=== PATIENT | female | born 1980 | race Asian ===

== ENCOUNTER 2017-06-09 17:38 | Inpatient (IN) ==
[2017-06-09] MEDS ORDERED: SODIUM CHLORIDE 0.9% 500 ML IV STA (17:58)
[2017-06-09] MEDS ORDERED: ONDANSETRON 4 MG/2 ML VIAL IV STA ×2 (17:58→18:40)
[2017-06-09] MEDS ORDERED: ALBUTEROL/IPRATROPIUM 3 ML NEB RESP TX STA (17:58)
[2017-06-09] MEDS ORDERED: ASPIRIN 325 MG TABLET PO STA (17:58)
[2017-06-09] MEDS ORDERED: ONDANSETRON 4 MG/2 ML VIAL ONE ×2 (18:03→18:41)
[2017-06-09] MEDS ORDERED: METOCLOPRAMIDE 10 MG/2 ML VIAL ONE (18:24)
[2017-06-09] MEDS ORDERED: ASPIRIN 325 MG TABLET ONE (18:24)
[2017-06-09 18:25] LABS: ABG HCO3 14.7 MMOL/L (20-26); ABG Oxygen Saturation 98.2 % (95-100); ABG PH 7.268 (7.35-7.45); ABG TCO2 11.1 MMOL/L (23-27)
[2017-06-09] MEDS ORDERED: METOCLOPRAMIDE 10 MG/2 ML VIAL IV STA (18:25)
[2017-06-09 18:33] LABS: Basophils # 0.1 10*3/uL (0.0-0.2); Basophils % 0.4 % (0.0-0.8); Eosinophils # 0.1 10*3/uL (0.0-0.87); Eosinophils % 0.7 % (0.00-10.9); Hematocrit 49.8 VOL% (35.7-47.0); Immature Granulocytes % 0.6 %; Lymphocytes # 3.6 10*3/uL (1.4-4.0); Lymphocytes % 20.7 % (21.3-54.2); Mean Corpuscular HGB Conc 32.1 GM/DL (32-36); Mean Corpuscular Hemoglobin 27 PG (27-34); Mean Corpuscular Volume 83.4 FL (87-102); Mean Platelet Volume 9.3 FL (9.6-12.0); Monocytes # 0.4 10*3/uL (0.11-0.8); Monocytes % 2.6 % (1.7-12.7); Neutrophils # 12.9 10*3/uL (1.4-7.4); Platelet Count 729 T/CUMM (130-400); Red Blood Count 5.97 MC/CUMM (3.8-5.5); Red Cell Distribution Width 21.9 % (9.3-17.3); White Blood Count 17.1 T/CUMM (4-12)
[2017-06-09 18:56] LABS: INR 1.1; PT Patient Result 12.1 SECS
[2017-06-09 19:03] LABS: Alanine Aminotransferase 48 U/L (13-56); Albumin 2.5 G/DL (3.4-5.0); Alkaline Phosphatase 158 U/L (45-117); Aspartate Amino Transferase 162 U/L (0-37); Bilirubin,Total < 0.39 MG/DL (0.2-1.0); Blood Urea Nitrogen 5 MG/DL (7-18); Calcium 7.5 MG/DL (8.5-10.1); Glucose 174 MG/DL (74-106); Magnesium 1.8 MG/DL (1.8-2.4); Osmolality,Calculated 281.3 MOS/KG (273-304); Potassium 4.1 MMOL/L (3.5-5.1); Sodium 141 MMOL/L (136-145); Total Protein 5.9 G/DL (6.4-8.3); Troponin I Only 0.025 NG/ML (0.00-0.045)
[2017-06-09 19:04] LABS: D-Dimer 7.2 MG/L FEU
[2017-06-09 19:08] LABS: Apearance,Urine CLEAR (Clear); Bilirubin,Urine Negative (Negative); Blood, Urine NEGATIVE (Negative); Glucose,Urine (UA) Negative (Negative); Ketones,Urine Negative (Negative); Nitrite,Urine Negative (Negative); Protein,Urine Negative; RBC,Urine 1 /HPF (0-4); Squamous Epithelial Cell,Urine Occasional /HPF (0-10); Urine Color Yellow (Yellow); Urine Specific Gravity 1.005 (1.001-1.035); Urine Urobilinogen 0.2 EU/DL (0.2-1.0); WBC,Urine 3 /HPF (0-6)
[2017-06-09] MEDS ORDERED: SODIUM BICARBONATE 50 MEQ/50 ML VIAL IV STA (19:24)
--- NOTE | 2017-06-09 19:24 | XRay Report ---
XR chest 1V portable Indication: Shortness of breath. Comparison: None. Technique: Portable AP chest was performed. Findings: Heart size is normal. Pulmonary vasculature appears within normal limits. No significant abnormality of the mediastinal contours demonstrated. Lungs are clear. Bones and soft tissues demonstrate no significant abnormalities. Impression: 1. No evidence of acute pathology. 06/09/2017 7:21 PM PROCEDURE INTERPRETED AT [facility] DEPARTMENT OF RADIOLOGY Final Report Signed by: Dr. Jonathan Kingsley
--- NOTE | 2017-06-09 19:40 | CT Report ---
CT head/brain wo con Indication: Syncope. Comparison: None. Technique: CT of the brain was performed without administration of intravenous contrast. The CT examination was performed using one or more of the following dose reduction techniques: Automatic exposure control, adjustment of the mA and kV according to patient size, use of acute or iterative reconstruction techniques. Findings: There is no evidence of acute intracranial hemorrhage, mass, or infarction. Ventricles appear within normal limits. The basal cisterns are patent. No significant abnormality is demonstrated to involve the posterior fossa or cerebellum. Orbits and globes demonstrate no evidence of significant pathology. The paranasal sinuses are clear. No significant abnormality is demonstrated to involve the mastoid air cells. The calvarium and overlying soft tissues demonstrate no evidence of acute pathology. Impression: 1. No CT evidence of acute intracranial pathology. 06/09/2017 7:36 PM PROCEDURE INTERPRETED AT [facility] DEPARTMENT OF RADIOLOGY Final Report Signed by: Dr. Jonathan Kingsley
[2017-06-09] MEDS ORDERED: PROMETHAZINE 25 MG/1 ML VIAL ONE (19:53)
[2017-06-09] MEDS ORDERED: LORazepam 2 MG/1 ML VIAL ONE (19:54)
[2017-06-09] MEDS ORDERED: LORazepam 2 MG/1 ML VIAL IV STA (19:55)
[2017-06-09] MEDS ORDERED: SODIUM BICARBONATE 50 MEQ/50 ML SYRINGE IV ONE (19:58)
--- NOTE | 2017-06-09 20:11 | Emergency Department Note ---
Daphney Claire Rolonda, am scribing for, and in the presence of, Floyd Ryder MD 18:10. Aleksey Claire Charles R, MD, personally performed the services described in this documentation, ascribed by Yovany Shelley in my presence, and it is both accurate and complete . Arrival - Arrival Chief Complaint: Allergic Reaction Stated Complaint: REACTION TO IRON INFUSION Mode of Arrival: Stretcher Limitations: No Limitations Source: Patient, Old Records Reviewed, RN Notes Reviewed Time Seen by Provider: 06/09/17 17:57 - History of Present Illness HPI Narrative: Pt is a 36 y/o female who presents to the ED for further evaluation of infusion reaction with an onset of earlier today. Pt has a PMHx of pseudoseizure and anemia. Pt states that she was receiving an Iron IV infusion at Dr. Balderas' today when she began to feel light headed. She states that she developed a pain that went from her back to the front of her chest "like a band". Pt states that the back pain is like a "back spasm". She states that it is "hard to breathe" and nothing relieves the pain. Pt states that she has had similar reactions while having a transfusion before but not this severe. Pt confirms SOB, vomiting, and blurred vision but denies back pain. Pt states that her BP usually runs 90/60 but at time of triage, pt's BP was 89/48. No other complaint/pain in ED. Onset (ago): hour(s) Consistency: constant Severity: moderate Severity scale (1-10): 5 Allergies/Adverse Reactions: Allergies Allergy/AdvReac Type Severity Reaction Status Date / Time codeine Allergy ITCHING Verified 06/09/17 19:11 Iodinated Contrast Media - Allergy ITCHING Verified 06/09/17 19:11 Oral and [Iodinated Contrast Media - IV Dye] sulfamethoxazole Allergy ANAPHYLAXIS Verified 06/09/17 19:11 [From Bactrim] trimethoprim [From Bactrim] Allergy ANAPHYLAXIS Verified 06/09/17 19:11 Home Medications: Home Medications Medication Instructions Recorded Confirmed Type Metoprolol Succinate 50 mg PO QAM 06/09/17 06/09/17 History Review of System - Review of System 12 point system: reviewed and no additional remarkable complaints except as stated - Review of System Constitutional: Absent: chills, fever Eyes: Present: vision change. Absent: discharge Head/Ears/Nose/Throat: Absent: earache Respiratory: Present: respiratory distress. Absent: cough Cardiovascular: Absent: chest pain, palpitations Gastrointestinal: Present: vomiting. Absent: abdominal pain, diarrhea Genitourinary female: Absent: dysuria Musculoskeletal: Present: back pain. Absent: arm pain Skin: Absent: rash Neurological: Present: vertigo. Absent: headache Psychiatric: Absent: anxiety Endocrine: Absent: cold intolerance Hematological/Lymphatic: Absent: easy bleeding Allergic/Immunologic: Absent: facial swelling Medical,Surgical,& Family Hx - Medical History Neurology: History of: Migraine No history of: Seizures (PSEUDO) HEENT: History of: Ear Problem (LOSS OF HEARING) Renal: No history of: Renal Problems Genitourinary: No history of: Bladder Problem, Kidney Stones Gastrointestinal: History of: GERD Musculoskeletal: No history of: Back/Neck Problems Hematology: History of: Anemia (IN THE PAST, BLOOD TRANSFUSIONS X 3) No history of: Blood Transfusion Reaction - Surgical History Cardiac Surgeries: Patient Denies: Cardiac Catheterization HEENT Surgeries: Patient denies: Eye Surgery, Tonsilectomy & Adenoidectomy Abdominal Surgeries: Surgical HX of: Cholecystectomy, Gastric Bypass Surgery Patient denies: Appendectomy, Colonoscopy, EGD, Hernia Repair Reproductive Surgeries: Surgical HX of;: Section, Tubal Ligation Patient denies;: Hysterectomy Orthopedic Surgeries: Patient denies;: Orthopedic Surgery - Social History Smoking Status: Never smoker Exam Vital Signs: Vital Signs Temperature 97.6 F 06/09/17 17:38 Pulse Rate 108 H 06/09/17 19:30 Respiratory Rate 18 06/09/17 19:30 Blood Pressure 105/75 06/09/17 19:30 O2 Sat by Pulse Oximetry 98 06/09/17 19:30 - General General appearance: alert, in no apparent distress, other (weak) - Head Head exam: Present: atraumatic, normocephalic - Eye Eye exam: Present: PERRL, EOMI - ENT ENT exam: Present: mucous membranes moist. Absent: mucous membranes dry - Neck Neck exam: Present: full ROM. Absent: tenderness - Chest Chest inspection: Present: symmetric chest wall rise. Absent: tenderness - Respiratory Respiratory exam: Present: normal lung sounds bilaterally. Absent: wheezes - Cardiovascular Cardiovascular exam: Present: normal rhythm, tachycardia - Abdominal Exam Abdominal exam: Present: soft, tenderness (epigastric), diminished bowel sounds - Extremities Exam Extremities exam: Present: full ROM. Absent: tenderness - Back Exam Back exam: Present: full ROM. Absent: tenderness - Neurological Exam Neurological exam: Present: alert, oriented X3, CN II-XII intact - Psychiatric Psychiatric exam: Present: normal affect, normal mood - Skin Skin exam: Present: warm, dry, intact, pallor. Absent: normal color, rash Course - Consultations Consultation #1: Hospitalist will admit patient Time: 20:46 Results - Labs CBC & BMP: 06/09/17 18:15 06/09/17 18:15 Lab Results: I have reviewed the patients labs Labs: Laboratory Tests 06/09/17 06/09/17 18:15 18:18 WBC 17.1 H RBC 5.97 H Hgb 16.0 Hct 49.8 H MCV 83.4 L RDW 21.9 H Plt Count 729 H MPV 9.3 L Neut % (Auto) 75.0 H Lymph % (Auto) 20.7 L Neut # (Auto) 12.9 H ABG pH 7.268 L ABG pCO2 28.0 L ABG pO2 161.0 H ABG HCO3 14.7 L ABG Total CO2 11.1 L ABG O2 Saturation 98.2 ABG Base Excess -13.0 L Laboratory Tests 06/09/17 06/09/17 06/09/17 18:15 18:15 18:15 INR 1.1 PT Patient/Control Mix 12.1 D-Dimer, Quantitative 7.2 Sodium 141 Potassium 4.1 Chloride 108 H Carbon Dioxide 18 L Anion Gap 19.1 H BUN 5 L GFR Calculation 0 Glucose 174 H Calcium 7.5 L AST 162 H Alkaline Phosphatase 158 H Total Protein 5.9 L Albumin 2.5 L Albumin/Globulin Ratio 0.7 L Prolactin 25.9 Urine pH Ur Specific [place] Urine Protein Urine Glucose (UA) Urine Ketones Urine Blood Urine Nitrate Urine Bilirubin Urine Urobilinogen Urine Leukocytes Urine RBC Urine WBC Ur Squamous Epith Cells Ur Culture Indicated? 06/09/17 18:15 INR PT Patient/Control Mix D-Dimer, Quantitative Sodium Potassium Chloride Carbon Dioxide Anion Gap BUN GFR Calculation Glucose Calcium AST Alkaline Phosphatase Total Protein Albumin Albumin/Globulin Ratio Prolactin Urine pH 6.0 Ur Specific [place] 1.005 Urine Protein Negative Urine Glucose (UA) Negative Urine Ketones Negative Urine Blood Negative Urine Nitrate Negative Urine Bilirubin Negative Urine Urobilinogen 0.2 Urine Leukocytes Negative Urine RBC 1 Urine WBC 3 Ur Squamous Epith Cells Occasional Ur Culture Indicated? Not indicated Laboratory Tests 06/09/17 18:15 B-Natriuretic Peptide < 2 L - Diagnostic Findings Procedure: Chest x-ray: report reviewed by me (1. No evidence of acute pathology.), CT: report reviewed by me (Head/Brain: 1. No CT evidence of acute intracranial pathology.), X-ray: image reviewed by me, report reviewed by me ( VQ lung scan is negative for pulmonary embolus) Disposition Clinical Impression: Allergic reaction, Adverse reaction to drug, Tachycardia, Syncope and collapse , Intractable nausea and vomiting, Possibly gastroparesis, Exaggerated vagovagal nerve Case discussed with: patient Disposition: Still a Patient Condition: Critical Time of Disposition: 20:46
--- NOTE | 2017-06-09 20:43 | Nuclear Medicine Report ---
NM lung scan vent and per Indication: Syncope. Shortness of breath. Comparison: None. Technique: Ventilation scan of the lungs was performed. 40 mCi of technetium 99m labeled DTPA was administered in aerosolized form, following which planar imaging in the anterior, ICELANDIC, and ZUNIGA projections was accomplished. Following this, 5 mCi technetium 99m labeled MAA was injected intravenously and perfusion scanning of the chest was performed in the anterior, ICELANDIC, and ZUNIGA projections. Findings: Perfusion imaging is normal. This excludes pulmonary embolus. Impression: 1. Normal perfusion excludes pulmonary embolus. 06/09/2017 8:37 PM PROCEDURE INTERPRETED AT [facility] DEPARTMENT OF RADIOLOGY Final Report Signed by: Dr. Jonathan Kingsley
--- NOTE | 2017-06-09 21:56 | Hospitalist History & Physical ---
Assessment and Plan (1) Allergic reaction Status: Acute Current Visit: Yes (2) Adverse reaction to drug Status: Acute Current Visit: Yes (3) Tachycardia Status: Acute Current Visit: Yes (4) Intractable nausea and vomiting Status: Acute Assessment and plan: I want to admit this patient to the ICU for close observation. I am going to put her on a bicarb infusion. An hour recheck labs at 4 AM. Continue home meds as appropriate. Feel most likely this is a reaction to the IV iron. She has had similar episodes before but not to this extent. Current Visit: Yes History of Present Illness Chief complaint: Altered mental status and reaction at iron infusion center History of present illness: Ms. Pyle is a 36 year old female with past medical history significant for anemia and pseudoseizures was in her normal state of health till today. Patient says that while she was having an IV iron infusion she felt really anxious and felt sick in her head. She reports that she got really nauseated. She reports to me that she did not lose consciousness. And that she was aware that her heart was beating real fast. She had a pain that developed in her back radiated to her front of her chest and was bandlike. She also had what appeared to be a back spasm and that was hard to breathe. She reports that she has had mild transfusion reactions before but nothing this severe. This does not resemble her pseudoseizures that she has had in the past. Patient was brought up to our hospital for further evaluation. Patient has received a thorough workup in the emergency room. Home Medications Medication Instructions Recorded Confirmed Type Metoprolol Succinate 50 mg PO QAM 06/09/17 06/09/17 History Allergies Allergy/AdvReac Type Severity Reaction Status Date / Time codeine Allergy ITCHING Verified 06/09/17 19:11 Iodinated Contrast Media - Allergy ITCHING Verified 06/09/17 19:11 Oral and [Iodinated Contrast Media - IV Dye] sulfamethoxazole Allergy ANAPHYLAXIS Verified 06/09/17 19:11 [From Bactrim] trimethoprim [From Bactrim] Allergy ANAPHYLAXIS Verified 06/09/17 19:11 Medical,Surgical,& Family Hx - Medical History Neurology: History of: Migraine No history of: Seizures (PSEUDO) HEENT: History of: Ear Problem (LOSS OF HEARING) Renal: No history of: Renal Problems Genitourinary: No history of: Bladder Problem, Kidney Stones Gastrointestinal: History of: GERD Musculoskeletal: No history of: Back/Neck Problems Hematology: History of: Anemia (IN THE PAST, BLOOD TRANSFUSIONS X 3) No history of: Blood Transfusion Reaction - Surgical History Cardiac Surgeries: Patient Denies: Cardiac Catheterization HEENT Surgeries: Patient denies: Eye Surgery, Tonsilectomy & Adenoidectomy Abdominal Surgeries: Surgical HX of: Cholecystectomy, Gastric Bypass Surgery Patient denies: Appendectomy, Colonoscopy, EGD, Hernia Repair Reproductive Surgeries: Surgical HX of;: Section, Tubal Ligation Patient denies;: Hysterectomy Orthopedic Surgeries: Patient denies;: Orthopedic Surgery - Family History Family History: Reports;: Family Diabetes, Family Hypertension - Social History Smoking Status: Never smoker Frequency of Alcohol Use: None Type of Drug Use: None 12 point system: reviewed and no additional remarkable complaints except as stated Exam - Constitutional Vitals: Period Temp Pulse Resp BP Sys/Segura Pulse Ox Last 24 Hr 97.6 F-97.6 F 104-137 16-22 88-110/48-75 98-100 - General General appearance: alert, in no apparent distress she seems nauseated and weak - Head Head exam: Present: atraumatic, normocephalic - Eye Eye exam: Present: PERRL, EOMI - ENT ENT exam: Present: mucous membranes moist. - Neck Neck exam: Present: full ROM. - Chest Chest inspection: Present: symmetric chest wall rise. Absent: tenderness - Respiratory Respiratory exam: Present: normal lung sounds bilaterally. - Cardiovascular Cardiovascular exam: Present: normal rhythm, tachycardia - Abdominal Exam Abdominal exam: Present: soft, tenderness in her epigastrium but hypoactive bowel sounds - Extremities Exam Extremities exam: Present: full ROM. Absent: tenderness - Back Exam Back exam: Present: full ROM. Absent: tenderness - Neurological Exam Neurological exam: Present: alert, oriented X3, CN II-XII intact - Psychiatric Psychiatric exam: Present: normal affect, normal mood - Skin Skin exam: Present: warm, dry, intact, pallor. Results - Labs CBC & BMP: 06/09/17 18:15 06/09/17 18:15
[2017-06-09] MEDS ORDERED: ALBUTEROL 2.5 MG/3 ML NEB RESP TX PRN (22:06)
[2017-06-09] MEDS ORDERED: SODIUM ACETATE 50 MEQ in SODIUM CHLORIDE 0.45% 1,000 ML IV SCH (23:00)
[2017-06-09] MEDS: PANTOPRAZOLE 40 MG VIAL IV SCH (23:13)
[2017-06-10] MEDS: MECLIZINE 25 MG TABLET PO PRN (03:39)
--- NOTE | 2017-06-10 06:22 | EKG Report ---
Stationary ECG Study [facility] ER Test Date: 06/09/2017 6:31:46 PM Pat Name: JAY EVANS Department: Room: 121 Gender: F [employer] Operations [employer]ist: : 1980 Requested by: Floyd Luke Order Number: [id number] Reading MD: CEASAR ABNKS Intervals [place]ester Rate: 140 P: 95 MN: 170 QRS: 20 QRSD: 78 T: 73 QT: 312 QTc: 393 Interpretive Statements SINUS TACHYCARDIA Electronically Signed On 06-10-17 16:42:12 CDT by CEASAR BANKS [email or web address]
[2017-06-10 07:16] LABS: Basophils % 0.1 % (0.0-0.8); Hematocrit 37.3 VOL% (35.7-47.0); Immature Granulocytes % 0.5 %; Immature Granulocytes Absolute 0.08 #; Lymphocytes # 0.7 10*3/uL (1.4-4.0); Lymphocytes % 4.4 % (21.3-54.2); Mean Corpuscular HGB Conc 32.2 GM/DL (32-36); Mean Corpuscular Hemoglobin 26 PG (27-34); Mean Platelet Volume 9.5 FL (9.6-12.0); Monocytes # 0.3 10*3/uL (0.11-0.8); Monocytes % 2.1 % (1.7-12.7); Neutrophils # 15.2 10*3/uL (1.4-7.4); Neutrophils % 92.9 % (38.7-73.9); Red Cell Distribution Width 20.6 % (9.3-17.3); White Blood Count 16.3 T/CUMM (4-12)
[2017-06-10 07:17] LABS: Platelet Count 471 T/CUMM (130-400); Red Blood Count 4.55 MC/CUMM (3.8-5.5)
[2017-06-10 07:32] LABS: Band Neutrophils 2 % (0-10); Hypochromasia 1+; Lymphocytes 5 % (20-55); Segmented Neutrophils 92 % (50-85); Total Cells Counted 100
[2017-06-10 07:33] LABS: Microcytosis 1+; Platelet Estimate Increased
[2017-06-10 07:39] LABS: Albumin 2.6 G/DL (3.4-5.0); Bilirubin,Total 1.4 MG/DL (0.2-1.0); Calcium 8.3 MG/DL (8.5-10.1); Osmolality,Calculated 275.5 MOS/KG (273-304); Potassium 4.8 MMOL/L (3.5-5.1); Total Protein 5.6 G/DL (6.4-8.3)
--- NOTE | 2017-06-10 08:40 | Oncology Progress Note ---
Oncology Subjective PN Interval history: This patient was receiving Venofer(iron sucrose) 400 mg over 90 minutes yesterday at the cancer clinic. Near the end of her infusion she developed pallor and hypotension. She was bolused fluids through 2 upper extremity peripheral IVs. The patient responded well initially. The infusion was stopped. She did receive Solu-Medrol 125 mg IV at that time. She was under observation only at that time and had a second episode of decreased responsiveness, profound hypotension and pallor. At that time EMS was notified and 1 mg epinephrine was given IV. Her blood pressure again improved and her heart rate was noted to be around 85-90. She was transferred to the ER in stable condition. Negative CT head and VQ lung scan are noted. Labs today show resolution of her anion gap. I have interviewed and examined her and she is pleasant and cooperative. She does have a resting tachycardia which was noted several weeks ago and addressed by her father who is a process plant operator in [place]. He started her on metoprolol. She also underwent an echocardiogram for a history of mitral valve dysfunction. She attempted an exercise stress test but was not able to tolerate this per her report this morning. Nurses report that she has stabilized since 3 AM this morning. She did report one episode of dizziness. She has been able to urinate. She did have at least 1 or 2 further hypotensive episodes after arrival to [facility]. Her lungs are clear and I do not appreciate any cardiac murmurs. I think she should hold her beta-zoie for several days. My recommendations are to transfer out of ICU and consider for discharge later today or perhaps tomorrow. Exam - Constitutional Vitals: Period Temp Pulse Resp BP Sys/Segura Pulse Ox Last 24 Hr 97.6 F-98.8 F 96-137 16-33 82-129/48-90 98-100 Results - Labs CBC & BMP: 06/10/17 06:34 06/10/17 06:34
[2017-06-10] MEDS: ACETAMINOPHEN 325 MG TABLET PO PRN (08:53)
[2017-06-10] MEDS: METOPROLOL SUCCINATE XL 50 MG TABLET PO SCH (08:53)
--- NOTE | 2017-06-10 10:13 | Hospitalist Progress Note ---
Assessment and Plan (1) Dizziness Status: Acute Assessment and plan: Ongoing with standing but improving Will check orthostatic vitals, continue to monitor on monitoring and evaluation advisor Current Visit: Yes (2) Hypotension Status: Acute Assessment and plan: Blood pressure 90s/60s this am, she reports that this is her baseline Current Visit: Yes (3) Leukocytosis Status: Acute Assessment and plan: Slightly down this morning No overt signs of infection, UA and CXR without acute process Afebrile Possibly reactive Blood cultures pending Current Visit: Yes (4) Metabolic acidosis Status: Acute Assessment and plan: Bicarb improved with IV bicarb, will discontinue Start NS for now Current Visit: Yes (5) Allergic reaction Status: Acute Current Visit: Yes (6) Tachycardia Status: Acute Assessment and plan: Per reports has a history of this for which she takes metoprolol Monitor on monitoring and evaluation advisor, NS Current Visit: Yes Hospitalist: Subjective Interval history: No acute events overnight. Patient reports that she feels better. Nausea is resolved. Still experiences some dizziness with standing. Will transfer to the floor today. Exam - Constitutional Vitals: Period Temp Pulse Resp BP Sys/Segura Pulse Ox Last 24 Hr 97.6 F-98.8 F 96-137 16-33 82-129/48-90 98-100 General appearance: normal weight - Head Head exam: Present: normocephalic, atraumatic - Eye Eye exam: Present: EOMI Pupils: Present: PRERNA - ENT ENT exam: Present: normal exam - Neck Neck exam: Present: normal inspection - Respiratory Respiratory exam: Present: clear to auscultation bilaterally. Absent: rhonchi, wheezes - Cardiovascular Cardiovascular exam: Present: regular rate and rhythm - GI/Abdominal GI/Abdominal exam: Present: normal bowel sounds, soft. Absent: tenderness, rebound - Extremities Exam Extremities exam: Present: normal inspection - Back Exam Back exam: Present: normal inspection - Neurological Exam Neurological exam: Present: alert, oriented X3 - Psychiatric Psychiatric exam: Present: normal affect, normal mood - Skin Skin exam: Present: warm, intact Results - Labs CBC & BMP: 06/10/17 06:34 06/10/17 06:34
[2017-06-10] MEDS: SODIUM CHLORIDE 0.9% 1,000 ML IV SCH ×2 (10:42→21:54)
[2017-06-10] MEDS: ONDANSETRON 4 MG/2 ML VIAL IV PRN ×2 (12:03→15:49)
[2017-06-10] MEDS ORDERED: SUMAtriptan 6 MG/0.5 ML VIAL SUBCUT ONE (15:53)
--- NOTE | 2017-06-10 15:54 | Neurology Consult Note ---
History of Present Illness History of present illness: 36 years old right-handed lady who was receiving Venofer(iron sucrose) 400 mg over 90 minutes yesterday at the cancer clinic. Near the end of her infusion she developed pallor and hypotension. She was bolused fluids through 2 upper extremity peripheral IVs. The patient responded well initially. The infusion was stopped. She did receive Solu-Medrol 125 mg IV at that time also. She was under observation only at that time and had a second episode of decreased responsiveness, profound hypotension and pallor. At that time EMS was notified and 1 mg epinephrine was given IV. Her blood pressure again improved and her heart rate was noted to be around 85-90. She was transferred to the ER in stable condition. CT of the head revealed no acute abnormalities. Patient is reporting that she has some vision difficulties at this time. She is having some difficulty in the left visual field. She has seen Dr. Cruz at [facility] before and diagnosed with pseudoseizure as well as chronic migraine headaches. She takes Excedrin Migraine at times at home. She has had MRI of the brain and long-term video EEG monitoring in [place] as well. She also has history of mitral valve dysfunction by echo. Home Medications Medication Instructions Recorded Confirmed Type Metoprolol Succinate 50 mg PO QAM 06/09/17 06/09/17 History Allergies Allergy/AdvReac Type Severity Reaction Status Date / Time codeine Allergy ITCHING Verified 06/09/17 19:11 Iodinated Contrast Media - Allergy ITCHING Verified 06/09/17 19:11 Oral and [Iodinated Contrast Media - IV Dye] sulfamethoxazole Allergy ANAPHYLAXIS Verified 06/09/17 19:11 [From Bactrim] trimethoprim [From Bactrim] Allergy ANAPHYLAXIS Verified 06/09/17 19:11 12 point system: reviewed and no additional remarkable complaints except as stated Medical,Surgical,& Family Hx - Medical History Cardio: Comment Only: Valvular Heart Disease (mitral valve prolapse) Neurology: History of: Migraine No history of: Seizures (PSEUDO) HEENT: History of: Ear Problem (LOSS OF HEARING in right ear), Eye Problem ( wears glasses) Renal: No history of: Renal Problems Genitourinary: No history of: Bladder Problem, Kidney Stones Gastrointestinal: History of: GERD Musculoskeletal: No history of: Back/Neck Problems Hematology: History of: Anemia (IN THE PAST, BLOOD TRANSFUSIONS X 3) No history of: Blood Transfusion Reaction - Surgical History Cardiac Surgeries: Patient Denies: Cardiac Catheterization HEENT Surgeries: Patient denies: Eye Surgery, Tonsilectomy & Adenoidectomy Abdominal Surgeries: Surgical HX of: Cholecystectomy, Gastric Bypass Surgery ( 2008) Patient denies: Appendectomy, Colonoscopy, EGD, Hernia Repair Reproductive Surgeries: Surgical HX of;: Section, Tubal Ligation Patient denies;: Hysterectomy Orthopedic Surgeries: Patient denies;: Orthopedic Surgery - Family History Family History: Reports;: Family Diabetes (father), Family Hypertension (father) - Social History Smoking Status: Never smoker Frequency of Alcohol Use: None Type of Drug Use: None Exam - Constitutional Vitals: Period Temp Pulse Resp BP Sys/Segura Pulse Ox Last 24 Hr 97.6 F-98.8 F 85-137 16-33 82-129/48-90 98-100 Exam: GENERAL: Patient is in no acute distress. NECK: Neck is supple. There is no JVD. No carotid bruits present. No thyroid masses. CVS: First and second heart sounds are normal. There is no S3 present. Regular rate and rhythm. RESPIRATORY: Lungs are clear to auscultation without any rales or rhonchi. ABDOMEN: Soft and non-tender. Bowel sounds are present. There is no hepatosplenomegaly. EXT: There is no palpable edema. Peripheral pulses are present. Skin: No rashes Central Nervous system: General: Alert, awake and Oriented x 3 Speech: Fluent Comprehension: Intact and normal Facial expressions: Normal Cranial Nerves: CN1/Olfactory: Normal CN II/ Optic: Normal, Visual [place] equal CN III, and : PRERNA & EOMI CN V: Normal & intact CN VII: face is symmetric CNVIII: Normal CN XI/X/XI/XII: Intact and Normal Motor: Bulk and Tone is normal. Strength in the right 5/5 Strength in the left 5/5 Sensory: Grossly intact for all the modalities of PP, LT and temp sense Reflexes: 1+ and symmetrical Cerebellar function: Normal finger to nose and heel to jeffries testing. Toes: Equivocal Gait: Normal heel to heel and toe to toe and tandem walk. Results - Labs CBC & BMP: 06/10/17 06:34 06/10/17 06:34 Assessment and Plan (1) Visual disturbance Status: Acute Assessment and plan: This could very well be secondary to migraine. Plan is to do MRI of the brain with and without contrast Current Visit: Yes (2) Syncope and collapse Status: Acute Assessment and plan: It sounded like a vasovagal phenomena. No clear evidence of a stroke, TIAs, epilepsy or seizures. However we will go ahead and perform EEG Current Visit: Yes (3) Migraine Status: Acute Assessment and plan: Patient is reporting acute headache at this moment. Visual disturbance could be a part of it We will try Imitrex 4 mg subcu injection 1 dose now Current Visit: Yes
[2017-06-10 17:07] LABS: Free T4 (Free Thyroxine) 0.85 NG/DL (0.76-1.46); Thyroid Stimulating Hormone 1.58 uIU/ml (0.358-3.74)
[2017-06-10 17:26] LABS: Folate 2.5 NG/ML (5.4-24.0)
--- NOTE | 2017-06-10 17:36 | Magnetic Resonance Report ---
MR head/brain wo con Indication: Visual disturbances. Syncope. Comparison: CT head 06/09/2017. Technique: Using 1.5 Lena magnet, multisequence multiplanar MR imaging of the brain was performed without the administration of intravenous contrast. Findings: Restricted diffusion is demonstrated involving a small punctate focus within the right thalamus, right superior aspect of the right cerebellar hemisphere, and more caudal aspect of the right and left cerebellar hemispheres. Restricted diffusion additionally is demonstrated within the cerebellar vermis. The largest of these areas lies within the posterior aspect of the right cerebral hemisphere is best demonstrated on axial image #5. These areas of restricted diffusion particularly within the cerebellum have corresponding areas of hyperintense T2 and FLAIR signal. Additional restricted diffusion involving posterior cortex and subcortical white matter the right occipital lobe is demonstrated. Axial gradient recall echo sequence demonstrates some evidence of signal loss in the region of the cerebellum. There is no true blooming in this possibly reflects calcification, artifact, versus microscopic blood products. Ventricular system demonstrates no evidence of acute pathology. White matter of the cerebral hemispheres demonstrates no significant abnormality. The basal cisterns appear patent. The arterial flow voids appear intact. The orbits and globes demonstrate no evidence of acute pathology. The paranasal sinuses and mastoid air cells demonstrate no evidence of significant mucoperiosteal thickening. The calvarium as well as the soft tissues overlying the calvarium demonstrate no evidence of acute pathology. Impression: 1. Acute to subacute infarctions bilaterally present within the cerebellar hemispheres as well as posterior cortex and subcortical white matter of the right occipital lobe suggest possible embolic phenomenon proximal to the basilar artery. Additional small punctate focus of restricted diffusion within the right thalamus is suggested. CTA neck is recommended for further evaluation of the vertebral arteries. 06/10/2017 5:19 PM PROCEDURE INTERPRETED AT [facility] DEPARTMENT OF RADIOLOGY Final Report Signed by: Dr. Jonathan Kingsley
[2017-06-10 17:39] LABS: Barbiturates Screen,Urine Negative (Negative); Benzodiazepines Screen,Urine Negative (Negative); Cannabinoid Screen,Urine Negative (Negative); Opiate Screen,Urine Negative (Negative); Phencyclidine Screen,Urine Negative (Negative)
[2017-06-10] MEDS ORDERED: ZIPRASIDONE 20 MG/1 ML VIAL IM ONE (20:25)
[2017-06-10] MEDS: PANTOPRAZOLE 40 MG VIAL IV SCH (21:52)
[2017-06-10] MEDS: HEPARIN DRIP 25,000 UNITS/500 ML PREMIX IV SCH (21:54)
[2017-06-10] MEDS: ZALEPLON 5 MG CAPSULE PO PRN (23:16)
[2017-06-11] MEDS: SODIUM CHLORIDE 0.9% 1,000 ML IV SCH ×2 (06:31→14:00)
[2017-06-11 07:02] LABS: Basophils % 0.3 % (0.0-0.8); Eosinophils % 0.2 % (0.00-10.9); Hematocrit 30.6 VOL% (35.7-47.0); Hemoglobin 9.7 GM/DL (12.0-16.0); Immature Granulocytes % 0.3 %; Immature Granulocytes Absolute 0.03 #; Lymphocytes # 3.4 10*3/uL (1.4-4.0); Mean Corpuscular HGB Conc 31.7 GM/DL (32-36); Mean Corpuscular Hemoglobin 26 PG (27-34); Mean Corpuscular Volume 82.9 FL (87-102); Mean Platelet Volume 9.9 FL (9.6-12.0); Monocytes # 0.5 10*3/uL (0.11-0.8); Monocytes % 4.9 % (1.7-12.7); Neutrophils # 5.7 10*3/uL (1.4-7.4); Neutrophils % 59.3 % (38.7-73.9); Platelet Count 341 T/CUMM (130-400); Red Blood Count 3.69 MC/CUMM (3.8-5.5); Red Cell Distribution Width 21.1 % (9.3-17.3); White Blood Count 9.7 T/CUMM (4-12)
[2017-06-11 07:33] LABS: Calcium 8.3 MG/DL (8.5-10.1); Magnesium 1.9 MG/DL (1.8-2.4); Osmolality,Calculated 281.8 MOS/KG (273-304); Potassium 3.7 MMOL/L (3.5-5.1)
[2017-06-11] MEDS ORDERED: methylPREDNISolone SOD SUC 125 MG/2 ML VIAL IV ONE (07:54)
[2017-06-11] MEDS ORDERED: diphenhydrAMINE 50 MG/1 ML VIAL IV ONE (07:54)
[2017-06-11] MEDS ORDERED: FAMOTIDINE 20 MG/2 ML VIAL IV ONE (07:55)
--- NOTE | 2017-06-11 08:32 | Oncology Progress Note ---
Oncology Subjective PN Interval history: Chart reviewed and patient examined. Persistent visual defect since early yesterday morning. Positive MRI with evidence of multiple infarcts. Plan for CTA today Now on heparin infusion. Hypercoagulable workup in progress. She is back on beta-zoie and her vitals have stabilized. She is alert and pleasant. Discussed with her that she would require long-term oral anticoagulation. Exam - Constitutional Vitals: Period Temp Pulse Resp BP Sys/Segura Pulse Ox Last 24 Hr 97.2 F-99.0 F 67-116 16-23 91-113/55-73 95-100 Results - Labs CBC & BMP: 06/11/17 05:19 06/11/17 05:19
[2017-06-11] MEDS: METOPROLOL SUCCINATE XL 50 MG TABLET PO SCH (08:49)
[2017-06-11] MEDS: ACETAMINOPHEN 325 MG TABLET PO PRN ×2 (08:49→18:14)
[2017-06-11] MEDS: MECLIZINE 25 MG TABLET PO PRN ×3 (08:58→18:14)
[2017-06-11 12:49] LABS: INR 1.1; PT Patient Result 11.3 SECS
[2017-06-11 12:56] LABS: Partial Thromboplastin Time 45.5 SECS (0-40)
--- NOTE | 2017-06-11 14:03 | Magnetic Resonance Report ---
History: Visual changes. CVA Date: 06/11/2017 Study: MRV of the head without contrast Comparison exam: MRI brain June 10, 2017. CT angiogram of the head 06/11/2017 2-D [id number] MRV of the head was performed on the 1.5 Lnea magnet. In addition to source images, 3-D images were also generated, archived, and analyzed. There is flow within the major venous sinuses without evidence of venous sinus thrombosis. The superior sagittal sinus, transverse sinuses, straight sinus, sigmoid sinuses, and other major sinuses are patent and normal when allowing for normal variation of flow patterns. The ventricles remain midline in position without evidence of hydrocephalus. There is no obvious brain mass. Impression: No evidence of venous sinus thrombosis PROCEDURE INTERPRETED AT [facility] DEPARTMENT OF RADIOLOGY Final Report Signed by: Dr. Silvia Mcmillan
--- NOTE | 2017-06-11 14:33 | Neurology Progress Note ---
Neurology - PN : Subjective Interval history: Patient seems to be doing a little better. Headaches are still bothersome. MRI of the brain report noted. Patient has bilateral acute infarcts in the posterior circulation. Able to get up and walk and has no walking difficulties however vision is a still bothersome. Hypercoagulable workup is in progress. Exam (Progress Note) - Constitutional Vitals: Period Temp Pulse Resp BP Sys/Segura Pulse Ox Last 24 Hr 97.2 F-99.0 F 65-94 16-20 97-114/57-75 95-100 Exam: GENERAL: Patient is in no acute distress. NECK: Neck is supple. There is no JVD. No carotid bruits present. No thyroid masses. CVS: First and second heart sounds are normal. There is no S3 present. Regular rate and rhythm. RESPIRATORY: Lungs are clear to auscultation without any rales or rhonchi. ABDOMEN: Soft and non-tender. Bowel sounds are present. There is no hepatosplenomegaly. EXT: There is no palpable edema. Peripheral pulses are present. Skin: No rashes Central Nervous system: General: Alert, awake and Oriented x 3 Speech: Fluent Comprehension: Intact and normal Facial expressions: Normal Cranial Nerves: CN1/Olfactory: Normal CN II/ Optic: Normal, Visual Montgomery questionable left homonymous hemianopsia CN III, and : PRERNA & EOMI CN V: Normal & intact CN VII: face is symmetric CNVIII: Normal CN XI/X/XI/XII: Intact and Normal Motor: Bulk and Tone is normal. Strength in the right 5/5 Strength in the left 5/5 Sensory: Grossly intact for all the modalities of PP, LT and temp sense Reflexes: 1+ and symmetrical Cerebellar function: Normal finger to nose and heel to jeffries testing. Toes: Equivocal Gait: Not tested at this time Results - Labs CBC & BMP: 06/11/17 05:19 06/11/17 05:19 Assessment and Plan (1) Visual disturbance Status: Acute Assessment and plan: This could very well be secondary to migraine. Plan is to do MRI of the brain with and without contrast Current Visit: Yes (2) Syncope and collapse Status: Acute Assessment and plan: It sounded like a vasovagal phenomena. No clear evidence of a stroke, TIAs, epilepsy or seizures. However we will go ahead and perform EEG Current Visit: Yes (3) Migraine Status: Acute Assessment and plan: Patient is reporting acute headache at this moment. Visual disturbance could be a part of it We will try Imitrex 4 mg subcu injection 1 dose now Current Visit: Yes (4) Acute CVA (cerebrovascular accident) Status: Acute Assessment and plan: Etiology of the stroke is not clear. This is an embolic event. MRA's are pending MRV is negative We will go ahead and order MARINO Continue IV heparin for now. Current Visit: Yes
[2017-06-11 15:08] LABS: Risk Ratio 2.16; VLDL CHOLESTEROL 27.6 MG/DL
--- NOTE | 2017-06-11 17:36 | ECHO Report ---
Gely Pyle Exam Date: 06/11/2017 07:41 Referring Physician: Technologist: kurtis FletcherS, RVT Age: 36 Ht (in): 62 Wt (lb): 158 Gender: F Exam Location: [facility] Echo Indications: Dizziness and giddiness, Hypotension, Leukocytosis, Tachycardia, Metabolic acidosis, Allergic reaction BP: 99 / 57 HR: 73 Rhythm: Sinus Technical Quality: IMPRESSIONS Left ventricular ejection fraction is estimated at 55 %. Trace mitral valve regurgitation. Trace tricuspid valve regurgitation. MEASUREMENTS (Male / Female) Normal Values 2D ECHO LV Diastolic Diameter PLAX 4.3 cm 4.2 - 5.9 / 3.9 - 5.3 cm LV Systolic Diameter PLAX 2.8 cm LV Fractional Shortening PLAX 35.0 % IVS Diastolic Thickness 0.5 cm 0.6 - 1.0 / 0.6 - 0.9 cm LVPW Diastolic Thickness 0.7 cm 0.6 - 1.0 / 0.6 - 0.9 cm RV Internal Dim ED PLAX 2.4 cm Aortic Root Diameter 2.7 cm LA Systolic Diameter LX 2.8 cm 3.0 - 4.0 / 2.7 - 3.8 cm DOPPLER TR Peak Velocity 232.0 cm/s TR Peak Gradient 21.5 mmHg FINDINGS Left Ventricle Normal left ventricular cavity size. Normal left ventricular wall thickness. Left ventricular ejection fraction is estimated at 55 %. Right Ventricle The right ventricle is normal in size and function. Right Atrium The right atrium is normal in size. Left Atrium The left atrium is normal in size. Mitral Valve Mildly thickened mitral valve. Trace mitral valve regurgitation. Aortic Valve Morphologically normal aortic valve without significant sclerosis or stenosis. There is no aortic regurgitation. Tricuspid Valve Morphologically normal tricuspid valve. Trace tricuspid valve regurgitation. Tricuspid regurgitation velocities suggest a PAP of 32 mmHg. Pulmonic Valve Morphologically normal pulmonic valve without significant stenosis. There is no pulmonic regurgitation. Pericardium Normal pericardium without effusion. Aorta Normal ascending aorta dimension. Manolo Quinones (Electronically Signed) Final Date: 11 June 2017 17:35
--- NOTE | 2017-06-11 18:01 | Hospitalist Progress Note ---
Hospitalist: Subjective Interval history: 36-year-old female with headache and embolic stroke on IV heparin. Has headache. Exam - Constitutional Vitals: Period Temp Pulse Resp BP Sys/Segura Pulse Ox Last 24 Hr 97.2 F-99.0 F 65-94 18-20 97-114/57-75 95-100 Exam: General: No Acute Distress HEENT: Normocephalic, atraumatic, Extra ocular movements intact Neck: Supple, No JVD Chest: Clear to auscultation B/L CV: S1 + S2 audible without murmur, gallop or rub Abd: soft, NT, Non-distended, BS + Ext: No edema Skin: No purpura, bruising or rash Rheumatologic: No Joint deformities Neurologic: Strength 5/5 all extremities, no gross sensory deficits Results - Labs CBC & BMP: 06/11/17 05:19 06/11/17 05:19 - Impressions Assessment and plan Acute posterior circulation embolic stroke Status: Acute Assessment and plan: Continue IV heparin MRV brain negative Current Visit: Yes Migraine headache Status: Acute Assessment and plan: Getting treatment Current Visit: Yes Hypotension Status: Acute Assessment and plan: This was likely side effect from Venofer, blood pressure stable Current Visit: Yes Anemia Status: Acute Assessment and plan: Multifactorial, including B12 and folate deficiency, she is on replacement treatment Current Visit: Yes
[2017-06-11] MEDS: FOLIC ACID 1 MG TABLET PO SCH (18:11)
[2017-06-11] MEDS: CYANOCOBALAMIN 1000 MCG/1 ML VIAL IM SCH (18:11)
[2017-06-11] MEDS: ONDANSETRON 4 MG/2 ML VIAL IV PRN (18:14)
--- NOTE | 2017-06-11 18:54 | History and Physical Update ---
Sedation H&P Update - Dictation Physical: refer to H&P completed by admitting physician - Physical Exam Mental Status: alert and oriented Heart: regular rate and rhythm Lung: clear to auscultation Abdomen: within normal limits Vitals: within normal limits - Sedation Plan for Sedation: moderate Patient Consent: Procedure disscussed with patient and patinet has consented., Risks and benefits were discussed with patient,including infection,, bleeding, injury to surrounding structures, seizure, temporary nerve, Patient understands and accepts potential risks/benefits and agrees to, proceed. ASA Class: II Airway Assessment: Class II: Soft palate, uvula, fauces visible
[2017-06-11 19:18] LABS: INR 1.1; PT Patient Result 11.2 SECS; Partial Thromboplastin Time 38.9 SECS (0-40)
--- NOTE | 2017-06-11 19:19 | CT Report ---
CT angio neck, CT angio head Indication: "Abnormal MRI" CT ANGIOGRAM CAROTID ARTERIES DLP: 1276 mGy*cm. One or more of the following dose reduction techniques was used: Automated exposure control, adjustment of the mA and/or kV according the patient size, or use of iterative reconstruction techniques. Technique: Axial thin cuts CT images were obtained from the aortic arch through the skull base during the arterial phase of contrast injection. 3-D vascular MIPs reconstructions and multiplanar reformats were evaluated. Omnipaque 350, 80 cc given. Comparison: None. Findings: Severity of stenosis based on NASCET criteria. Reference downstream ICA diameters are 3.2 mm on the right and 3.5 mm on the left. There is no atheromatous disease or stenosis of either ICA origin. Both internal carotid arteries are widely patent through the skull base. Both vertebral arteries are patent, left-sided dominant. Within the mid right vertebral artery, at the level of C4, there is a crescentic filling defect generally eccentric but extending to the center of the vertebral artery, likely a small focus of thrombus. It appears adherent to the vessel intima. No other filling defects are identified within the vertebral system. Bovine arch noted. Aortic arch is unremarkable. No cervical chain lymphadenopathy. Pulmonary apices are clear. No destructive bone lesions. Impression: 1. Small eccentric filling defect within the mid right vertebral artery consistent with an adherent clot. Recommend repeat CT angiogram after 2-4 weeks of therapeutic anticoagulation. 2. Normal CT angiogram of the carotid arteries. Bovine arch incidentally noted. CT ANGIOGRAM [place] DLP: 1276 mGy*cm. One or more of the following dose reduction techniques was used: Automated exposure control, adjustment of the mA and/or kV according the patient size, or use of iterative reconstruction techniques. Technique: Axial thin cut CT images were obtained from the skull base to the vertex during arterial phase of contrast injection. 3-D vascular MIPs reconstructions and multiplanar reformats were evaluated. Omnipaque 350, 80 cc given. Comparison: None. Findings: Both vertebral arteries terminate in the basilar artery which is of normal caliber and free of filling defect. Its contour is smooth. The basilar artery terminates in bilateral [place]. The [place] vessels are bilaterally symmetric and appear patent as far distal as visualized. The carotid termini are unremarkable without aneurysm or focal stenosis. RADHA and MCA vascular territories are bilaterally symmetric as well. No intracranial aneurysmal disease. No abrupt termination of flow. Dural venous sinuses, deep cerebral venous structures are widely patent. Both transverse and sigmoid sinuses are widely patent as well. Proximal internal jugular veins are widely patent and symmetric. Impression: 1. Negative CT angiogram of the [place]. 2. No evidence of dural vein thrombosis. PROCEDURE INTERPRETED AT [facility] DEPARTMENT OF RADIOLOGY Final Report Signed by: Ifeanyi Ayala M.D.
[2017-06-11] MEDS ORDERED: ZIPRASIDONE 20 MG/1 ML VIAL IM ONE (19:30)
[2017-06-11] MEDS ORDERED: HEPARIN 5,000 UNIT/1 ML VIAL SUBCUT ONE (20:51)
--- NOTE | 2017-06-11 20:54 | Cardiology Progress Note ---
Cardiology - PN: Subj Interval history: Cardiology note Called for MARINO. 36-year-old woman from [place] with chronic anemia had allergic reaction to iron infusion and subsequent stroke. MRI shows bilateral cerebellar hemisphere and right thalamus and right occipital lobe infarcts. Currently on IV heparin. SHe is complaining of blurred vision and trouble reading. Surface echo showed ejection fraction of 55% with mildly thickened mitral valve , trivial MR, normal RV function, no effusion. Lifetime non-smoker and nondrinker. Patient history of chronic migraine headaches. No clinical history of stroke. No history of DVT, miscarriage, or clotting disorder in her family. Status post EGD with esophageal stricture dilatation [address] Albert Worthington. She denies difficulty swallowing at this time. Chronic microcytic anemia hemoglobin 9.7 hematocrit 30.6 MCV 82 Lipid panel showed cholesterol 272 LDL 120 HDL 126 triglycerides 138 CTA carotids showed normal carotid arteries bilaterally and clot in the mid right vertebral artery. Regular rhythm no murmur or gallop. Strong pulses both arms and legs Abdomen benign No edema Plan MARINO tomorrow 7:30 AM. Procedure risk benefits discussed with patient and with her Orlin. All questions answered and she agrees to proceed as outlined. Hypercoagulable workup in progress IV heparin Exam (Progress Note) - Constitutional Vitals: Period Temp Pulse Resp BP Sys/Segura Pulse Ox Last 24 Hr 97.2 F-99.0 F 65-81 18-20 97-114/57-75 95-100 Result/EKG - Labs CBC & BMP: 06/11/17 05:19 06/11/17 05:19 Labs: Laboratory Results - last 24 hr 06/10/17 06/11/17 06/11/17 20:53 05:19 05:19 WBC 9.7 D RBC 3.69 L Hgb 9.7 L D Hct 30.6 L MCV 82.9 L MCH 26 L MCHC 31.7 L RDW 21.1 H Plt Count 341 D MPV 9.9 Neut % (Auto) 59.3 Lymph % (Auto) 35.0 [place] % (Auto) 4.9 Eos % (Auto) 0.2 Baso % (Auto) 0.3 Neut # (Auto) 5.7 Lymph # (Auto) 3.4 [place] # (Auto) 0.5 Eos # (Auto) 0.0 Baso # (Auto) 0.0 Immature Gran % 0.3 Nucleated RBC % 0.0 Immature Gran # 0.03 Nucleated RBCs # 0.00 Immature Plt Fraction 0.0 INR PT Patient/Control Mix Circ Anticoag PTT 25.9 38.9 D Sodium Potassium Chloride Carbon Dioxide Anion Gap BUN Creatinine GFR Calculation BUN/Creatinine Ratio Glucose Calculated Osmolality Calcium Magnesium Triglycerides Cholesterol LDL Cholesterol VLDL Cholesterol HDL Cholesterol Heart Disease Risk Ratio 06/11/17 06/11/17 06/11/17 05:19 12:22 13:30 WBC RBC Hgb Hct MCV MCH MCHC RDW Plt Count MPV Neut % (Auto) Lymph % (Auto) [place] % (Auto) Eos % (Auto) Baso % (Auto) Neut # (Auto) Lymph # (Auto) [place] # (Auto) Eos # (Auto) Baso # (Auto) Immature Gran % Nucleated RBC % Immature Gran # Nucleated RBCs # Immature Plt Fraction INR 1.1 PT Patient/Control Mix 11.3 Circ Anticoag PTT 45.5 H Sodium 144 Potassium 3.7 Chloride 109 H Carbon Dioxide 27 Anion Gap 11.7 BUN 3 L Creatinine 0.50 L GFR Calculation 123 BUN/Creatinine Ratio 6.00 Glucose 72 L Calculated Osmolality 281.8 Calcium 8.3 L Magnesium 1.9 Triglycerides 138 Cholesterol 272 H LDL Cholesterol 120.0 VLDL Cholesterol 27.6 HDL Cholesterol 126 H Heart Disease Risk Ratio 2.16 06/11/17 18:29 WBC RBC Hgb Hct MCV MCH MCHC RDW Plt Count MPV Neut % (Auto) Lymph % (Auto) [place] % (Auto) Eos % (Auto) Baso % (Auto) Neut # (Auto) Lymph # (Auto) [place] # (Auto) Eos # (Auto) Baso # (Auto) Immature Gran % Nucleated RBC % Immature Gran # Nucleated RBCs # Immature Plt Fraction INR 1.1 PT Patient/Control Mix 11.2 Circ Anticoag PTT 38.9 Sodium Potassium Chloride Carbon Dioxide Anion Gap BUN Creatinine GFR Calculation BUN/Creatinine Ratio Glucose Calculated Osmolality Calcium Magnesium Triglycerides Cholesterol LDL Cholesterol VLDL Cholesterol HDL Cholesterol Heart Disease Risk Ratio
[2017-06-11] MEDS: ZALEPLON 5 MG CAPSULE PO PRN (21:09)
[2017-06-11] MEDS: HEPARIN DRIP 25,000 UNITS/500 ML PREMIX IV SCH (21:15)
[2017-06-11] MEDS: PANTOPRAZOLE 40 MG VIAL IV SCH (22:59)
[2017-06-12] MEDS: SODIUM CHLORIDE 0.9% 1,000 ML IV SCH ×3 (00:30→17:18)
[2017-06-12] MEDS ORDERED: MIDAZOLAM 10 MG/2 ML VIAL ONE ×2 (07:29→08:25)
[2017-06-12] MEDS ORDERED: MEPERIDINE 25 MG/1 ML VIAL ONE ×2 (07:29→08:38)
[2017-06-12] MEDS ORDERED: MEPERIDINE 25 MG/1 ML VIAL IV ONE (08:55)
[2017-06-12] MEDS ORDERED: MIDAZOLAM 2 MG/2 ML VIAL IV ONE (08:55)
--- NOTE | 2017-06-12 10:02 | Quality Management ---
The patient's LDL is 120. Please order the appropriate medication or provide a contraindication PRIOR to discharge. To complete this task, you will need to order the medication OR provide a contraindication utilizing the Order Management screen. DO NOT ORDER OR PROVIDE CONTRAINDICATIONS WITHIN THIS QUERY. THIS IS A MEANINGFUL USE REQUIREMENT! Thank you, Lea Viramontes RN Clinical Filling [place] [address] [phone] [facility]
[2017-06-12] MEDS: ONDANSETRON 4 MG/2 ML VIAL IV PRN (10:25)
[2017-06-12] MEDS: METOPROLOL SUCCINATE XL 50 MG TABLET PO SCH (10:27)
[2017-06-12] MEDS: FOLIC ACID 1 MG TABLET PO SCH (10:27)
[2017-06-12] MEDS: CYANOCOBALAMIN 1000 MCG/1 ML VIAL IM SCH (10:27)
[2017-06-12] MEDS: ACETAMINOPHEN 325 MG TABLET PO PRN (10:53)
[2017-06-12] MEDS ORDERED: PROMETHAZINE 25 MG/1 ML VIAL IM ONE (11:08)
[2017-06-12] MEDS ORDERED: KETOROLAC 60 MG/2 ML VIAL IM ONE (11:08)
[2017-06-12] MEDS ORDERED: METOCLOPRAMIDE 10 MG/2 ML VIAL IV PRN (11:10)
[2017-06-12 11:57] LABS: Protein C Activity Plasma 113 % (70 - 150)
--- NOTE | 2017-06-12 12:41 | Hospitalist Progress Note ---
Hospitalist: Subjective Interval history: 36-year-old female admitted with acute ischemic stroke. Has a migraine headache today. Exam - Constitutional Vitals: Period Temp Pulse Resp BP Sys/Segura Pulse Ox Last 24 Hr 97.7 F-98.4 F 66-95 16-20 93-111/55-75 96-98 Exam: General: No Acute Distress HEENT: Normocephalic, atraumatic, Extra ocular movements intact Neck: Supple, No JVD Chest: Clear to auscultation B/L CV: S1 + S2 audible without murmur, gallop or rub Abd: soft, NT, Non-distended, BS + Ext: No edema Skin: No purpura, bruising or rash Rheumatologic: No Joint deformities Neurologic: Strength 5/5 all extremities, no gross sensory deficits Results - Labs CBC & BMP: 06/11/17 05:19 06/11/17 05:19 - Impressions Assessment and plan: Acute posterior circulation embolic stroke Status: Acute Assessment and plan: Continue IV heparin MRV brain negative MRI brain shows bilateral cerebellar hemisphere and right thalamus and right occipital lobe infarcts CTA head/neck showed a small clot in the mid right vertebral artery. Hypercoagulable workup in progress f/u MARINO Results Current Visit: Yes Migraine headache Status: Acute Assessment and plan: Getting treatment. We will give a trial of Reglan Current Visit: Yes Hypotension Status: Acute Assessment and plan: This was likely side effect from Venofer, blood pressure stable Current Visit: Yes Anemia Status: Acute Assessment and plan: Multifactorial, including B12 and folate deficiency, she is on replacement treatment Current Visit: Yes Hypercholesterolemia Status: Acute Assessment and plan: She is on Lipitor as total cholesterol was 272 and LDL was 120 Current Visit: Yes
[2017-06-12] MEDS: CYANOCOBALAMIN 500 MCG TABLET PO SCH (13:59)
--- NOTE | 2017-06-12 16:30 | Neurology Progress Note ---
Neurology - PN : Subjective Interval history: Patient seems to be doing about the same. Primary problem at this time is headaches. She did get MARINO this more after MARINO she has been having bitemporal and frontal headaches. It is throbbing in character. Associated with nausea. She had received Reglan dose as well as Toradol without any significant help. Exam (Progress Note) - Constitutional Vitals: Period Temp Pulse Resp BP Sys/Segura Pulse Ox Last 24 Hr 97.7 F-98.4 F 66-95 16-20 93-111/55-75 96-98 Exam: GENERAL: Patient is in no acute distress. NECK: Neck is supple. There is no JVD. No carotid bruits present. No thyroid masses. CVS: First and second heart sounds are normal. There is no S3 present. Regular rate and rhythm. RESPIRATORY: Lungs are clear to auscultation without any rales or rhonchi. ABDOMEN: Soft and non-tender. Bowel sounds are present. There is no hepatosplenomegaly. EXT: There is no palpable edema. Peripheral pulses are present. Skin: No rashes Central Nervous system: General: Alert, awake and Oriented x 3 Speech: Fluent Comprehension: Intact and normal Facial expressions: Normal Cranial Nerves: CN1/Olfactory: Normal CN II/ Optic: Normal, Visual Montgomery questionable left homonymous hemianopsia CN III, and : PRERNA & EOMI CN V: Normal & intact CN VII: face is symmetric CNVIII: Normal CN XI/X/XI/XII: Intact and Normal Motor: Bulk and Tone is normal. Strength in the right 5/5 Strength in the left 5/5 Sensory: Grossly intact for all the modalities of PP, LT and temp sense Reflexes: 1+ and symmetrical Cerebellar function: Normal finger to nose and heel to jeffries testing. Toes: Equivocal Gait: Able to get up and walk with min assist to supervision Results - Labs CBC & BMP: 06/11/17 05:19 06/11/17 05:19 Assessment and Plan (1) Visual disturbance Status: Acute Assessment and plan: This could very well be secondary to migraine. Plan is to do MRI of the brain with and without contrast Current Visit: Yes (2) Syncope and collapse Status: Acute Assessment and plan: It sounded like a vasovagal phenomena. No clear evidence of a stroke, TIAs, epilepsy or seizures. However we will go ahead and perform EEG Current Visit: Yes (3) Migraine Status: Acute Assessment and plan: Depacon 500 g IV every 8 Solu-Medrol 60 mg IV q. every 8 Demerol 75 mg IV q8 Phenergan 25 mg IM q8 We will run this medication for [address] head without contrast Current Visit: Yes (4) Acute CVA (cerebrovascular accident) Status: Acute Assessment and plan: Hypercoagulable state workup is pending Stop IV heparin Eliquis 5 mg twice daily Current Visit: Yes
--- NOTE | 2017-06-12 17:00 | CT Report ---
Noncontrast CT head June 12, 2017 Indication: Syncope Comparison: June 09, 2017 Technique: Unenhanced CT of the abdomen was performed in routine fashion. Axial images were submitted for interpretation Findings: Development of multifocal areas of hypoattenuation throughout the cerebellar hemispheres have developed in the interim with blurring of the steward-white differentiation along the posterior right occipital lobe. There is again scattered hypodensities scattered throughout the supratentorial steward matter, stable in the interim. No mass effect or midline shift. No intra or extra-axial hemorrhage. Mild sulcal prominence. Ventricular system and basilar cisterns are symmetric. Calvarium is intact. No soft tissue abnormalities. Impression: Development of multi focal infarctions involving the bilateral cerebellar hemispheres and some aspect right occipital lobe. PROCEDURE INTERPRETED AT [facility] DEPARTMENT OF RADIOLOGY Final Report Signed by: Jonathan Steward
[2017-06-12] MEDS: PROMETHAZINE 25 MG/1 ML VIAL IM SCH (17:19)
[2017-06-12] MEDS: MEPERIDINE 50 MG/1 ML VIAL IV PRN (17:19)
[2017-06-12] MEDS: methylPREDNISolone SOD SUC 40 MG/1 ML VIAL IV SCH (17:19)
[2017-06-12] MEDS: VALPROIC ACID INJ 500 MG in SODIUM CHLORIDE 0.9% 100 ML IV SCH (18:08)
--- NOTE | 2017-06-12 19:16 | ECHO Report ---
Gely Pyle Exam Date: 06/12/2017 07:17 Referring Physician: Technologist: Tatyana Perez LRCP Age: 36 Ht (in): 62 Wt (lb): 157 Gender: F Exam Location: [facility] Echo Pre-op Dx: Stroke Post-op Dx: BP: 117 / 75 HR: 82 Rhythm: Sinus Technical Quality: Good Specimens Taken Devices Implanted Medications Complications Estimated Blood Loss Proc. Components IMPRESSIONS Left ventricular ejection fraction is estimated at 65 %. Normal right ventricular size and systolic function. Normal right atrial size. Normal left atrial size. No thrombus visualized in the left atrial appendage. Normal interatrial septum. No vauno-oy-kaez shunt seen at the atrial level with contrast. Mildly thickened mitral valve. Trace mitral valve regurgitation. The aortic valve is trileaflet and has normal motion. No aortic valve regurgitation. Mild tricuspid valve regurgitation. PAP25 mmHg. Morphologically normal pulmonic valve. No pericardial effusion. No plaque seen descending Aorta. No cardio embolic source identified. MEASUREMENTS (Male / Female) Normal Values FINDINGS Left Ventricle Left ventricular ejection fraction is estimated at 65 %. Right Ventricle Normal right ventricular size and systolic function. Right Atrium Normal right atrial size. Left Atrium Normal left atrial size. LA Appendage No thrombus visualized in the left atrial appendage. IA Septum Normal interatrial septum. No [id number] shunt seen at the atrial level with contrast. Mitral Valve Mildly thickened mitral valve. Trace mitral valve regurgitation. Aortic Valve The aortic valve is trileaflet and has normal motion. No aortic valve regurgitation. Tricuspid Valve Morphologically normal tricuspid valve. Mild tricuspid valve regurgitation. PAP25 mmHg. Pulmonic Valve Morphologically normal pulmonic valve. Pericardium No pericardial effusion. Aorta No plaque seen descending Aorta Don Eder (Electronically Signed) Final Date: 12 June 2017 19:15
[2017-06-12] MEDS: ZALEPLON 5 MG CAPSULE PO PRN (21:39)
[2017-06-12] MEDS: ATORVASTATIN 40 MG TABLET PO SCH (21:39)
[2017-06-12] MEDS: PANTOPRAZOLE 40 MG VIAL IV SCH (21:41)
[2017-06-13] MEDS: MEPERIDINE 50 MG/1 ML VIAL IV PRN ×3 (01:18→18:08)
[2017-06-13] MEDS: methylPREDNISolone SOD SUC 40 MG/1 ML VIAL IV SCH ×2 (01:21→08:41)
[2017-06-13] MEDS: VALPROIC ACID INJ 500 MG in SODIUM CHLORIDE 0.9% 100 ML IV SCH ×2 (01:27→08:41)
[2017-06-13] MEDS: PROMETHAZINE 25 MG/1 ML VIAL IM SCH ×2 (01:28→08:41)
[2017-06-13 04:42] LABS: Basophils % 0.1 % (0.0-0.8); Hematocrit 30.3 VOL% (35.7-47.0); Hemoglobin 9.6 GM/DL (12.0-16.0); Immature Granulocytes % 1.1 %; Immature Granulocytes Absolute 0.09 #; Lymphocytes # 0.8 10*3/uL (1.4-4.0); Mean Corpuscular HGB Conc 31.7 GM/DL (32-36); Mean Corpuscular Hemoglobin 27 PG (27-34); Mean Corpuscular Volume 83.9 FL (87-102); Monocytes # 0.1 10*3/uL (0.11-0.8); Monocytes % 1.4 % (1.7-12.7); Neutrophils # 7.2 10*3/uL (1.4-7.4); Neutrophils % 87.4 % (38.7-73.9); Platelet Count 280 T/CUMM (130-400); Red Blood Count 3.61 MC/CUMM (3.8-5.5); Red Cell Distribution Width 21.1 % (9.3-17.3); White Blood Count 8.3 T/CUMM (4-12)
[2017-06-13 05:03] LABS: Calcium 7.8 MG/DL (8.5-10.1); Osmolality,Calculated 278.3 MOS/KG (273-304)
[2017-06-13] MEDS: SODIUM CHLORIDE 0.9% 1,000 ML IV SCH ×3 (05:50→17:46)
[2017-06-13] MEDS: CYANOCOBALAMIN 500 MCG TABLET PO SCH (08:40)
[2017-06-13] MEDS: METOPROLOL SUCCINATE XL 50 MG TABLET PO SCH (08:41)
[2017-06-13] MEDS: FOLIC ACID 1 MG TABLET PO SCH (08:41)
--- NOTE | 2017-06-13 12:04 | Cardiology Progress Note ---
Cardiology - PN: Subj Interval history: Cardiology note Still having headaches. Received Demerol Blood pressure 110/70 Pulse steady and regular No murmur or gallop Lungs clear MARINO showed no cardioembolic source Ejection fraction 65% structurally normal valves, no clot in left atrial appendage, normal descending thoracic aorta. I called her Orlin to discuss the results yesterday Plan Demerol Depakote Phenergan Exam (Progress Note) - Constitutional Vitals: Period Temp Pulse Resp BP Sys/Segura Pulse Ox Last 24 Hr 97.5 F-98.2 F 61-97 16-20 94-111/58-74 94-100 Result/EKG - Labs CBC & BMP: 06/13/17 02:26 06/13/17 02:26 Labs: Laboratory Results - last 24 hr 06/12/17 06/13/17 06/13/17 15:51 02:26 02:26 WBC 8.3 RBC 3.61 L Hgb 9.6 L Hct 30.3 L MCV 83.9 L MCH 27 MCHC 31.7 L RDW 21.1 H Plt Count 280 MPV 10.0 Neut % (Auto) 87.4 H Lymph % (Auto) 10.0 L [place] % (Auto) 1.4 L Eos % (Auto) 0.0 Baso % (Auto) 0.1 Neut # (Auto) 7.2 Lymph # (Auto) 0.8 L [place] # (Auto) 0.1 L Eos # (Auto) 0.0 Baso # (Auto) 0.0 Immature Gran % 1.1 Nucleated RBC % 0.0 Immature Gran # 0.09 Nucleated RBCs # 0.00 Immature Plt Fraction 0.0 Circ Anticoag PTT 66.3 H D Sodium 141 Potassium 4.0 Chloride 107 Carbon Dioxide 26 Anion Gap 12.0 BUN 5 L Creatinine 0.50 L GFR Calculation 123 BUN/Creatinine Ratio 10.00 Glucose 108 H Calculated Osmolality 278.3 Calcium 7.8 L
--- NOTE | 2017-06-13 13:32 | Hospitalist Progress Note ---
Hospitalist: Subjective Interval history: 36-year-old female admitted with acute ischemic stroke. Has headache today but she reports it is better with current treatment Exam - Constitutional Vitals: Period Temp Pulse Resp BP Sys/Segura Pulse Ox Last 24 Hr 97.5 F-98.2 F 61-97 16-20 94-111/58-69 94-100 Exam: General: No Acute Distress HEENT: Normocephalic, atraumatic, Extra ocular movements intact Neck: Supple, No JVD Chest: Clear to auscultation B/L CV: S1 + S2 audible without murmur, gallop or rub Abd: soft, NT, Non-distended, BS + Ext: No edema Skin: No purpura, bruising or rash Rheumatologic: No Joint deformities Neurologic: Strength 5/5 all extremities, no gross sensory deficits Results - Labs CBC & BMP: 06/13/17 02:26 06/13/17 02:26 - Impressions Assessment and plan: Acute posterior circulation embolic stroke Status: Acute Assessment and plan: Continue IV heparin MRV brain negative MRI brain shows bilateral cerebellar hemisphere and right thalamus and right occipital lobe infarcts CTA head/neck showed a small clot in the mid right vertebral artery. Hypercoagulable workup in progress f/u MARINO Results Current Visit: Yes Headache Status: Acute Assessment and plan: He is getting treatment with IV and Demerol IV Solu-Medrol and Depakote Current Visit: Yes Hypotension Status: Acute Assessment and plan: This was likely side effect from Venofer, blood pressure stable Current Visit: Yes Anemia Status: Acute Assessment and plan: Multifactorial, including B12 and folate deficiency, she is on replacement treatment Current Visit: Yes Hypercholesterolemia Status: Acute Assessment and plan: She is on Lipitor as total cholesterol was 272 and LDL was 120 Current Visit: Yes
[2017-06-13] MEDS: ZALEPLON 5 MG CAPSULE PO PRN (20:45)
[2017-06-13] MEDS: ATORVASTATIN 40 MG TABLET PO SCH (20:45)
[2017-06-13] MEDS: predniSONE 10 MG TABLET PO SCH (20:46)
[2017-06-13] MEDS: APIXABAN 5 MG TABLET PO SCH (20:46)
[2017-06-14] MEDS: PANTOPRAZOLE 40 MG VIAL IV SCH (02:06)
[2017-06-14] MEDS: MEPERIDINE 50 MG/1 ML VIAL IV PRN ×2 (02:07→10:28)
[2017-06-14] MEDS: SODIUM CHLORIDE 0.9% 1,000 ML IV SCH (03:15)
[2017-06-14 04:25] LABS: Basophils % 0.1 % (0.0-0.8); Hematocrit 31.3 VOL% (35.7-47.0); Hemoglobin 9.8 GM/DL (12.0-16.0); Immature Granulocytes % 1.1 %; Immature Granulocytes Absolute 0.14 #; Lymphocytes # 1.4 10*3/uL (1.4-4.0); Lymphocytes % 10.5 % (21.3-54.2); Mean Corpuscular HGB Conc 31.3 GM/DL (32-36); Mean Corpuscular Hemoglobin 27 PG (27-34); Mean Corpuscular Volume 85.3 FL (87-102); Mean Platelet Volume 9.8 FL (9.6-12.0); Monocytes # 0.7 10*3/uL (0.11-0.8); Neutrophils # 11.1 10*3/uL (1.4-7.4); Neutrophils % 83.3 % (38.7-73.9); Platelet Count 259 T/CUMM (130-400); Red Blood Count 3.67 MC/CUMM (3.8-5.5); Red Cell Distribution Width 21.4 % (9.3-17.3); White Blood Count 13.3 T/CUMM (4-12)
[2017-06-14 06:43] LABS: Folate 8.3 NG/ML (5.4-24.0); Vitamin B12 > 2000 PG/ML (211-911)
[2017-06-14 07:34] LABS: Sedimentation Rate-Westergren 22 MM/HR (0-20)
[2017-06-14] MEDS: CYANOCOBALAMIN 500 MCG TABLET PO SCH (08:52)
[2017-06-14] MEDS: FOLIC ACID 1 MG TABLET PO SCH (08:54)
[2017-06-14] MEDS: ACETAMINOPHEN 325 MG TABLET PO PRN (08:54)
[2017-06-14] MEDS: predniSONE 10 MG TABLET PO SCH (08:55)
[2017-06-14] MEDS: APIXABAN 5 MG TABLET PO SCH (08:55)
[2017-06-14] MEDS ORDERED: METOPROLOL SUCCINATE XL 25 MG TABLET PO SCH (09:00)
[2017-06-14] MEDS ORDERED: KETOROLAC 10 MG TABLET PO PRN (10:27)
[2017-06-14] MEDS ORDERED: methylPREDNISolone 4 MG TABLET PO SCH ×2 (10:30→13:00)
[2017-06-14] MEDS ORDERED: PROMETHAZINE 25 MG TABLET PO PRN (10:41)
--- NOTE | 2017-06-14 10:43 | Discharge Summary ---
Hospital Course - Hospital Course Hospital Course: 36 years old right-handed lady who was receiving Venofer(iron sucrose) 400 mg over 90 minutes at the cancer clinic. Near the end of her infusion she developed pallor and hypotension. She was bolused fluids through 2 upper extremity peripheral IVs. The patient responded well initially. The infusion was stopped. She did receive Solu-Medrol 125 mg IV at that time also. She was under observation only at that time and had a second episode of decreased responsiveness, profound hypotension and pallor. At that time EMS was notified and 1 mg epinephrine was given IV. Her blood pressure again improved and her heart rate was noted to be around 85-90. She was transferred to the ER in stable condition. CT of the head revealed no acute abnormalities. Patient reported some vision difficulties as well, she was having some difficulty in the left visual field. She has seen Dr. Cruz at [facility] before and diagnosed with pseudoseizure as well as chronic migraine headaches. She takes Excedrin Migraine at times at home. She has had MRI of the brain and long-term video EEG monitoring in [place] as well. She also has history of mitral valve dysfunction by echo. She was admitted to the hospital service. Patient was being followed by oncology Dr. Balderas & Neurology Dr. Costa. Patient had episode of significant migraine headache, that required treatment with several medications including Geodon, Imitrex, Depakote and Solu-Medrol. Headaches are better now.. MRV brain did not show any evidence of venous sinus thrombosis. Brain MRI showed acute to subacute infarctions bilaterally within the cerebellar hemispheres as well as posterior cortex and subcortical white matter of the right occipital lobe suggesting possible embolic phenomenon proximal to the basilar artery.Head and neck CTA reveals small eccentric filling defect within the mid right vertebral artery consistent with an and adherent clot. Based on these findings she was started on IV heparin infusion and later on transitioned to Eliquis. She underwent a MARINO as well by cardiology, did not have a hard thrombus. 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 She also cannot tolerate oral iron and that was the reason she was getting IV Venofer. She also was placed on Lipitor. She will also given physical therapy treatment with continued at home. Overall she has reached maximal hospital benefit and being discharged home. She has a neurologist advised him with which she will continue to follow. Total discharge time 40 minutes. - Time spent with patient Time with patient DS: Greater than 30 minutes Discharge Plan - Discharge Data Condition at Discharge: Stable Discharge Diet: advance to your usual diet Activity: resume usual activities as tolerated Hygiene: no restrictions Weight Bearing at Discharge: full weight bearing Driving: no restrictions - Discharge Medications New Atorvastatin [Lipitor] 40 mg PO BEDTIME #30 tablet Folic Acid Tab 1 mg PO DAILY #30 tablet Ketorolac Tab [Toradol Tab] 10 mg PO Q4H PRN #30 tablet PRN Reason: Pain Mild To Moderate (1-7) Metoprolol Succinate Xl [Toprol Xl] 25 mg PO DAILY #30 tablet Promethazine Tab [Phenergan Tab] 25 mg PO Q6H PRN #30 tablet PRN Reason: Nausea/Vomiting Apixaban [Eliquis] 5 mg PO BID #60 tablet Cyanocobalamin Tab [Vitamin B12 Tab] 1,000 mcg PO DAILY #30 tablet methylPREDNISolone TAB [Medrol] 8 mg PO 1300 #30 tablet Discontinued Metoprolol Succinate 50 mg PO QAM - Follow Up or Referral - Forms/Instructions Exam - Constitutional Vitals: Period Temp Pulse Resp BP Sys/Segura Pulse Ox Last 24 Hr 97.4 F-98.5 F 56-82 15-19 96-113/48-73 94-100 General appearance: no acute distress - Head Head exam: Present: normal inspection, normocephalic, atraumatic - Eye Eye exam: Present: periorbital swelling - Neck Neck exam: Present: normal inspection - Neurological Exam Neurological exam: Present: alert, oriented X3 - Psychiatric Psychiatric exam: Present: normal mood - Skin Skin exam: Present: normal color Discharge Results Procedures and tests throughout hospitalization: Pending Orders 06/09/17 18:37 Blood Culture Stat 06/10/17 20:53 Anti-Thrombin III Routine Factor V Leiden (R506Q) Mutati Routine Phospholipid Ab IgA, S Routine Phospholipid Ab, IgG/M Routine Protein C Activity Plasma Routine Protein C Antigen Routine Protein S Activity Plasma Routine Protein S Ag, P Routine 06/12/17 06:00 CL heart Routine 06/14/17 03:39 Anemia Profile IN AM Labs on day of discharge: Labs from last 24 hours 06/14/17 06/14/17 06/14/17 03:39 03:39 03:39 WBC 13.3 H D RBC 3.67 L Hgb 9.8 L Hct 31.3 L MCV 85.3 L MCH 27 MCHC 31.3 L RDW 21.4 H Plt Count 259 MPV 9.8 Neut % (Auto) 83.3 H Lymph % (Auto) 10.5 L [place] % (Auto) 5.0 Eos % (Auto) 0.0 Baso % (Auto) 0.1 Neut # (Auto) 11.1 H Lymph # (Auto) 1.4 [place] # (Auto) 0.7 Eos # (Auto) 0.0 Baso # (Auto) 0.0 Immature Gran % 1.1 Nucleated RBC % 0.0 Immature Gran # 0.14 Nucleated RBCs # 0.00 Anemia Panel Interp Pending Immature Plt Fraction 0.0 ESR Westergren 22 H Absolute Retic 0.1 Percent Retic 2.3 H Retic Hgb Equivalent 36.7 H Ferritin 294.8 H Vitamin B12 > 2000 H Folate 8.3 Preliminary micro results at discharge 06/09/17 18:37 Blood Culture - Preliminary Blood No growth at 3 days 06/09/17 18:37 Blood Culture - Preliminary Blood No growth at 3 days DS: Provider Date of admission: 06/09/17 22:06 Primary care physician: . No PCP Attending physician on admission: Ifeanyi Robert MD Consults: 06/09/17 23:54 Consult to Physician [CONS] Routine Comment: patient of yours Consulting Provider: Ifeanyi Balderas 06/09/17 23:56 Consult to Physician [CONS] Routine Comment: possible seizures Consulting Provider: Louis Costa Person Notified: LASHANDA Date Notified: 06/10/17 Time Notified: 14:25 06/11/17 07:00 Consult to Occupational Therapy [CONS] Routine Reason for Occupational Therapy: Evaluate and Treat Consult to Physical Therapy [CONS] Routine Reason for Physical Therapy: Evaluate and Treat Consult to Speech Therapy [CONS] Routine Reason for Speech Therapy: Evaluate and Treat 06/11/17 14:23 Consult to Physician [CONS] Routine Comment: tachycardia, possible MARINO Consulting Provider: Manolo Quinones Consult to Specialist Group: Cardiology Person Notified: harshal Date Notified: 06/11/17 Time Notified: 14:30 06/14/17 10:28 Consult to Case Mgmt/Social Srvs [CONS] Routine Reason for Case Mgmt/Social Srvs: Other Consult Comment: Please arrange home health physical therapy 3 times weekly for gait Discharging clinician: Elpidio Cruz MD
[2017-06-14 11:13] VITALS: BP 107/64
--- NOTE | 2017-06-14 23:01 | Electroencephalogram ---
HISTORY: A 36 years old patient with history of possible seizures. INTRODUCTION: A digital EEG was performed using the standard 10/20 system of electrode placement wit h one channel of EKG monitoring. Photic stimulation is performed. DESCRIPTION OF RECORD: The background is well organized and consists of 9 to 10 Hz moderate amplitud e bilaterally symmetrical Alpha rhythm predominant in the posterior head region which attenuates with eye opening. Photic stimulation elicits driving response at all flash frequencies. Hyperventilatio n was not performed. Drowsiness and sleep are not achieved. There are no focal, sharp wave, spike o r wave activity seen. Heart rate is 72 beats per minute. IMPRESSION: NORMAL ELECTROENCEPHALOGRAM DURING WAKEFULNESS. CLINICAL CORRELATION: NO FOCAL NOR EPILEPTIFORM FEATURES ARE SEEN. NORMAL EEG DOES NOT RULE OUT THE DIAGNOSTIC POSSIBILITY OF EPILEPSY. CLINICAL CORRELATION IS SUGGESTED.
[2017-06-16 14:10] LABS: Protein S Activity Plasma 144 % (50 - 160)
[2017-06-17 11:01] LABS: Factor V Leiden (R506Q) Mutati Negative (Negative)
[2017-06-17 12:06] LABS: Phospholipid Ab IgM, S < 9.4 MPL
[2017-06-17 12:31] LABS: Protein C Antigen 97 % (70-150)
== END 2017-06-14 12:01 | disposition home health service (06) | DRG 312 ==
LOC: EDUNIT# → EDBD → N.ED 17:38 → N.EDINP 22:06 → SUATTDRO 22:06 → N.CC 22:40 → N.5E 06-10 14:46
PROVIDERS: ADMIT Internal Medicine; ATTEND Hospitalist

== ENCOUNTER 2017-12-05 09:59 | Inpatient (IN) ==
[2017-12-05] MEDS ORDERED: THIAMINE INJ 100 MG, FOLIC ACID INJ 1 MG, MAGNESIUM SULF INJ 2 GM, MULTIVITAMIN INJ 10 ... IV ONE (10:44)
[2017-12-05 10:49] LABS: Basophils % 0.1 % (0.0-0.8); Eosinophils % 0.2 % (0.00-10.9); Hematocrit 38.2 VOL% (35.7-47.0); Hemoglobin 12.8 GM/DL (12.0-16.0); Immature Granulocytes % 0.8 %; Immature Granulocytes Absolute 0.08 #; Lymphocytes # 1.5 10*3/uL (1.4-4.0); Lymphocytes % 15.5 % (21.3-54.2); Mean Corpuscular HGB Conc 33.5 GM/DL (32-36); Mean Corpuscular Hemoglobin 32 PG (27-34); Mean Corpuscular Volume 95.7 FL (87-102); Mean Platelet Volume 11.7 FL (9.6-12.0); Monocytes # 0.7 10*3/uL (0.11-0.8); Monocytes % 6.5 % (1.7-12.7); NRBC # 0.05 10*3/uL; Neutrophils # 7.6 10*3/uL (1.4-7.4); Neutrophils % 76.9 % (38.7-73.9); Platelet Count 155 T/CUMM (130-400); Red Blood Count 3.99 MC/CUMM (3.8-5.5); White Blood Count 9.9 T/CUMM (4-12)
[2017-12-05 10:56] LABS: INR 1.4; PT Patient Result 14.7 SECS
[2017-12-05 11:21] LABS: Albumin 2.3 G/DL (3.4-5.0); Bilirubin,Total 10.7 MG/DL (0.2-1.0); Calcium 9.1 MG/DL (8.5-10.1); Osmolality,Calculated 254.9 MOS/KG (273-304); Potassium 2.9 MMOL/L (3.5-5.1); Total Protein 6.1 G/DL (6.4-8.3)
[2017-12-05 11:25] LABS: Apearance,Urine CLOUDY (Clear); Bacteria,Urine Many /HPF (Few); Blood, Urine Negative (Negative); Glucose,Urine (UA) Negative (Negative); Hyaline Casts,Urine 6 /LPF (0-3); Ketones,Urine Negative (Negative); Mucus,Urine Occasional /LPF (Occasional); Nitrite,Urine Negative (Negative); Protein,Urine 100 MG/DL; RBC,Urine 11 /HPF (0-4); Squamous Epithelial Cell,Urine Occasional /HPF (0-10); Urine Color Amber (Yellow); Urine Specific Gravity 1.021 (1.001-1.035); WBC,Urine 57 /HPF (0-6)
[2017-12-05 11:28] LABS: Bilirubin,Urine Moderate mg/dL (Negative)
[2017-12-05 11:47] LABS: Barbiturates Screen,Urine Negative (Negative); Benzodiazepines Screen,Urine Negative (Negative); Cannabinoid Screen,Urine Negative (Negative); Opiate Screen,Urine Negative (Negative); Phencyclidine Screen,Urine Negative (Negative)
[2017-12-05 12:04] LABS: Lactic Acid 4.1 MMOL/L (0.4-2.0)
[2017-12-05] MEDS ORDERED: DEXT 5% NACL 0.45% KCL 20 MEQ 20 MEQ/1,000 ML BAG IV ONE (12:18)
[2017-12-05] MEDS ORDERED: DEXT 5% NACL 0.45% KCL 20 MEQ 20 MEQ/1,000 ML BAG IV SCH (12:30)
[2017-12-05] MEDS ORDERED: PIPERACILLIN/TAZOBACTAM 3,375 MG VIAL IV ONE (14:28)
[2017-12-05] MEDS ORDERED: diphenhydrAMINE 50 MG/1 ML VIAL IV ONE (14:31)
[2017-12-05] MEDS ORDERED: methylPREDNISolone SOD SUC 125 MG/2 ML VIAL IV STA (14:31)
[2017-12-05] MEDS ORDERED: SODIUM CHLORIDE 0.9% 1,900 ML IV ONE (14:33)
[2017-12-05] MEDS: PIPERACILLIN/TAZOBACTAM 3,375 MG in SODIUM CHLORIDE 0.9% 100 ML IV SCH (14:44)
[2017-12-05] MEDS ORDERED: diphenhydrAMINE 50 MG/1 ML VIAL ONE (16:05)
[2017-12-05] MEDS ORDERED: methylPREDNISolone SOD SUC 40 MG/1 ML VIAL ONE (16:06)
[2017-12-05] MEDS: ENOXAPARIN 40 MG/0.4 ML SYRINGE SUBCUT SCH (21:15)
[2017-12-05] MEDS: SODIUM CHLORIDE 0.9% 1,000 ML IV SCH (22:39)
[2017-12-05] MEDS: NOREPINEPHRINE 8 MG in SODIUM CHLORIDE 0.9% 242 ML IV SCH (23:15)
[2017-12-06] MEDS: PIPERACILLIN/TAZOBACTAM 3,375 MG in SODIUM CHLORIDE 0.9% 100 ML IV SCH ×3 (02:10→18:58)
[2017-12-06] MEDS: SODIUM CHLORIDE 0.9% 1,000 ML IV SCH ×3 (03:45→10:13)
[2017-12-06 05:41] LABS: Basophils % 0.2 % (0.0-0.8); Hematocrit 32.2 VOL% (35.7-47.0); Immature Granulocytes % 1.6 %; Immature Granulocytes Absolute 0.15 #; Lymphocytes # 1.2 10*3/uL (1.4-4.0); Lymphocytes % 12.1 % (21.3-54.2); Mean Corpuscular HGB Conc 34.2 GM/DL (32-36); Mean Corpuscular Hemoglobin 33 PG (27-34); Mean Corpuscular Volume 95.5 FL (87-102); Mean Platelet Volume 11.3 FL (9.6-12.0); Monocytes # 0.8 10*3/uL (0.11-0.8); Monocytes % 7.9 % (1.7-12.7); NRBC # 0.06 10*3/uL; Neutrophils # 7.5 10*3/uL (1.4-7.4); Neutrophils % 78.2 % (38.7-73.9); Platelet Count 135 T/CUMM (130-400); Red Blood Count 3.37 MC/CUMM (3.8-5.5); Red Cell Distribution Width 15.4 % (9.3-17.3); White Blood Count 9.5 T/CUMM (4-12)
[2017-12-06 06:29] LABS: Albumin 1.8 G/DL (3.4-5.0); Bilirubin,Total 9.4 MG/DL (0.2-1.0); Calcium 8.3 MG/DL (8.5-10.1); Potassium 2.6 MMOL/L (3.5-5.1); Total Protein 5.1 G/DL (6.4-8.3)
[2017-12-06 09:57] LABS: Basophils % 0.1 % (0.0-0.8); Eosinophils % 0.1 % (0.00-10.9); Hemoglobin 11.3 GM/DL (12.0-16.0); Immature Granulocytes % 1.5 %; Immature Granulocytes Absolute 0.16 #; Lymphocytes # 1.7 10*3/uL (1.4-4.0); Lymphocytes % 15.7 % (21.3-54.2); Mean Corpuscular HGB Conc 33.2 GM/DL (32-36); Mean Corpuscular Hemoglobin 32 PG (27-34); Mean Corpuscular Volume 97.4 FL (87-102); Mean Platelet Volume 10.9 FL (9.6-12.0); Monocytes % 9.7 % (1.7-12.7); NRBC # 0.07 10*3/uL; Neutrophils # 7.7 10*3/uL (1.4-7.4); Neutrophils % 72.9 % (38.7-73.9); Platelet Count 133 T/CUMM (130-400); Red Blood Count 3.49 MC/CUMM (3.8-5.5); Red Cell Distribution Width 15.6 % (9.3-17.3); White Blood Count 10.6 T/CUMM (4-12)
[2017-12-06] MEDS ORDERED: POTASSIUM CHLORIDE 20 MEQ TABLET PO SCH (10:00)
[2017-12-06] MEDS: POTASSIUM CHLORIDE INJ 40 MEQ in SODIUM CHLORIDE 0.9% 1,000 ML IV SCH ×3 (12:11→21:50)
[2017-12-06 12:48] LABS: % Iron Saturation 46.2 % (18-50); Ferritin 393.8 ng/ml (8-252)
[2017-12-06] MEDS: POTASSIUM CHLORIDE 20 MEQ/15 ML UDCUP PO ONE ×2 (14:33→14:42)
[2017-12-06 15:05] LABS: HIV Antigen/Antibody Result Nonreactive (Nonreactive); Hepatitis A Ab IgM Quant 0.11 Index; Hepatitis A Ab IgM Result Negative (Negative); Hepatitis B Core Ab Result Negative (Negative); Hepatitis B Surface Ag Quant 0.16 Index; Hepatitis B Surface Ag Result Negative (Negative); Hepatitis C Virus Ab Quant 0.13 Index; Hepatitis C Virus Ab Result Negative (Negative)
[2017-12-06 15:06] LABS: Folate 7.2 NG/ML (5.4-24.0); Vitamin B12 > 2000 PG/ML (211-911)
[2017-12-06] MEDS: ENOXAPARIN 40 MG/0.4 ML SYRINGE SUBCUT SCH (20:15)
[2017-12-06] MEDS: NOREPINEPHRINE 8 MG in SODIUM CHLORIDE 0.9% 242 ML IV SCH (23:36)
[2017-12-07] MEDS: PIPERACILLIN/TAZOBACTAM 3,375 MG in SODIUM CHLORIDE 0.9% 100 ML IV SCH ×3 (02:00→21:14)
[2017-12-07] MEDS: POTASSIUM CHLORIDE INJ 40 MEQ in SODIUM CHLORIDE 0.9% 1,000 ML IV SCH ×3 (02:48→13:16)
[2017-12-07 03:38] LABS: Albumin 1.9 G/DL (3.4-5.0); Bilirubin,Total 8.2 MG/DL (0.2-1.0); Calcium 7.8 MG/DL (8.5-10.1); Osmolality,Calculated 274.4 MOS/KG (273-304); Potassium 3.4 MMOL/L (3.5-5.1); Total Protein 4.7 G/DL (6.4-8.3)
[2017-12-07 08:28] LABS: Hepatitis B Surface Ab Result Positive
[2017-12-07] MEDS: SODIUM CHLOR 0.9% KCL 40 MEQ 40 MEQ/1,000 ML BAG IV SCH ×3 (17:44→21:28)
[2017-12-07] MEDS: ENOXAPARIN 40 MG/0.4 ML SYRINGE SUBCUT SCH (21:20)
[2017-12-08] MEDS: PIPERACILLIN/TAZOBACTAM 3,375 MG in SODIUM CHLORIDE 0.9% 100 ML IV SCH (05:13)
[2017-12-08] MEDS: SODIUM CHLOR 0.9% KCL 40 MEQ 40 MEQ/1,000 ML BAG IV SCH ×3 (05:18→19:47)
[2017-12-08 05:45] LABS: Basophils % 0.5 % (0.0-0.8); Eosinophils # 0.1 10*3/uL (0.0-0.87); Eosinophils % 1.4 % (0.00-10.9); Hematocrit 34.3 VOL% (35.7-47.0); Hemoglobin 11.1 GM/DL (12.0-16.0); Immature Granulocytes % 4.8 %; Immature Granulocytes Absolute 0.35 #; Lymphocytes # 2.2 10*3/uL (1.4-4.0); Lymphocytes % 29.3 % (21.3-54.2); Mean Corpuscular HGB Conc 32.4 GM/DL (32-36); Mean Corpuscular Hemoglobin 32 PG (27-34); Mean Corpuscular Volume 98.6 FL (87-102); Mean Platelet Volume 10.6 FL (9.6-12.0); Monocytes % 13.1 % (1.7-12.7); NRBC # 0.09 10*3/uL; Neutrophils # 3.7 10*3/uL (1.4-7.4); Neutrophils % 50.9 % (38.7-73.9); Platelet Count 115 T/CUMM (130-400); Red Blood Count 3.48 MC/CUMM (3.8-5.5); Red Cell Distribution Width 16.9 % (9.3-17.3); White Blood Count 7.3 T/CUMM (4-12)
[2017-12-08 06:15] LABS: Ammonia < 10 UMOL/L (11-32)
[2017-12-08 06:18] LABS: Alanine Aminotransferase 171 U/L (13-56); Albumin 1.9 G/DL (3.4-5.0); Alkaline Phosphatase 379 U/L (45-117); Aspartate Amino Transferase 184 U/L (0-37); Bilirubin,Indirect 1.7 MG/DL (0.0-1.0); Blood Urea Nitrogen < 1 MG/DL (7-18); Calcium 8.1 MG/DL (8.5-10.1); Glucose 65 MG/DL (74-106); Osmolality,Calculated 270.9 MOS/KG (273-304); Potassium 3.7 MMOL/L (3.5-5.1); Sodium 139 MMOL/L (136-145); Total Protein 5.2 G/DL (6.4-8.3)
[2017-12-08] MEDS: cefTRIAXone 1,000 MG in SYRINGE 1 EACH IV SCH (13:53)
[2017-12-08 14:01] LABS: Mitochondrial Antibody (M2) <0.1 U
[2017-12-08 16:23] LABS: Myeloperoxidase Antibody < 0.2 U
[2017-12-08] MEDS: ZIPRASIDONE 20 MG CAPSULE PO PRN (20:29)
[2017-12-08] MEDS ORDERED: LORazepam 2 MG/1 ML VIAL IV ONE (23:45)
[2017-12-08] MEDS: ENOXAPARIN 40 MG/0.4 ML SYRINGE SUBCUT SCH (23:53)
[2017-12-09] MEDS: SODIUM CHLOR 0.9% KCL 40 MEQ 40 MEQ/1,000 ML BAG IV SCH ×2 (01:34→05:45)
[2017-12-09 06:56] LABS: Basophils % 0.4 % (0.0-0.8); Eosinophils # 0.1 10*3/uL (0.0-0.87); Eosinophils % 1.1 % (0.00-10.9); Hematocrit 31.1 VOL% (35.7-47.0); Hemoglobin 10.4 GM/DL (12.0-16.0); Immature Granulocytes % 7.7 %; Immature Granulocytes Absolute 0.58 #; Lymphocytes % 26.5 % (21.3-54.2); Mean Corpuscular HGB Conc 33.4 GM/DL (32-36); Mean Corpuscular Hemoglobin 33 PG (27-34); Mean Corpuscular Volume 97.2 FL (87-102); Mean Platelet Volume 10.5 FL (9.6-12.0); Monocytes # 1.3 10*3/uL (0.11-0.8); NRBC # 0.07 10*3/uL; Neutrophils # 3.6 10*3/uL (1.4-7.4); Neutrophils % 47.3 % (38.7-73.9); Platelet Count 125 T/CUMM (130-400); White Blood Count 7.6 T/CUMM (4-12)
[2017-12-09 07:20] LABS: Band Neutrophils 3 % (0-10); Eosinophils 3 % (0-10); Hypochromasia 1+; Lymphocytes 28 % (20-55); Macrocytosis Slight; Platelet Estimate Normal; Polychromasia Slight; Segmented Neutrophils 52 % (50-85); Total Cells Counted 100
[2017-12-09 07:30] LABS: Blood Urea Nitrogen < 1 MG/DL (7-18); Calcium 6.9 MG/DL (8.5-10.1); Glucose 54 MG/DL (74-106); Osmolality,Calculated 272.8 MOS/KG (273-304); Sodium 140 MMOL/L (136-145)
[2017-12-09 07:42] LABS: Albumin 1.7 G/DL (3.4-5.0); Bilirubin,Direct 7.79 MG/DL (0.0-0.20); Bilirubin,Indirect 1.4 MG/DL (0.0-1.0); Bilirubin,Total 9.2 MG/DL (0.2-1.0); Total Protein 4.8 G/DL (6.4-8.3)
[2017-12-09] MEDS ORDERED: DEXTROSE 50% 25 GM/50 ML VIAL IV ONE (08:00)
[2017-12-09] MEDS ORDERED: DEXTROSE 50% 25 GM/50 ML VIAL IV PRN (08:23)
[2017-12-09] MEDS: cefTRIAXone 1,000 MG in SYRINGE 1 EACH IV SCH (08:42)
[2017-12-09] MEDS: LACTULOSE 20 GM/30 ML UDCUP PO SCH ×2 (12:08→18:20)
[2017-12-09 12:51] LABS: Smooth Muscle Antibody Negative (Negative)
[2017-12-09] MEDS ORDERED: THIAMINE 200 MG/2 ML VIAL IV SCH (13:00)
[2017-12-09] MEDS: ENOXAPARIN 40 MG/0.4 ML SYRINGE SUBCUT SCH (20:17)
[2017-12-09] MEDS: ZIPRASIDONE 20 MG CAPSULE PO PRN (20:25)
[2017-12-10] MEDS: ZIPRASIDONE 20 MG CAPSULE PO PRN ×2 (02:24→20:28)
[2017-12-10] MEDS: LACTULOSE 20 GM/30 ML UDCUP PO SCH ×5 (05:22→23:46)
[2017-12-10 05:37] LABS: Basophils % 0.6 % (0.0-0.8); Eosinophils # 0.1 10*3/uL (0.0-0.87); Eosinophils % 1.3 % (0.00-10.9); Hematocrit 29.5 VOL% (35.7-47.0); Hemoglobin 9.8 GM/DL (12.0-16.0); Immature Granulocytes % 6.7 %; Immature Granulocytes Absolute 0.46 #; Lymphocytes # 2.3 10*3/uL (1.4-4.0); Lymphocytes % 33.7 % (21.3-54.2); Mean Corpuscular HGB Conc 33.2 GM/DL (32-36); Mean Corpuscular Hemoglobin 32 PG (27-34); Mean Corpuscular Volume 97.4 FL (87-102); Mean Platelet Volume 10.2 FL (9.6-12.0); Monocytes # 1.1 10*3/uL (0.11-0.8); Monocytes % 16.3 % (1.7-12.7); NRBC # 0.04 10*3/uL; Neutrophils # 2.8 10*3/uL (1.4-7.4); Neutrophils % 41.4 % (38.7-73.9); Platelet Count 150 T/CUMM (130-400); Red Blood Count 3.03 MC/CUMM (3.8-5.5); Red Cell Distribution Width 18.4 % (9.3-17.3); White Blood Count 6.9 T/CUMM (4-12)
[2017-12-10 05:56] LABS: Hypochromasia 1+; Platelet Estimate Normal
[2017-12-10 05:57] LABS: Polychromasia Slight
[2017-12-10 05:58] LABS: Giant Platelets Few; Macrocytosis Slight
[2017-12-10 06:11] LABS: Alanine Aminotransferase 152 U/L (13-56); Albumin 1.6 G/DL (3.4-5.0); Alkaline Phosphatase 278 U/L (45-117); Aspartate Amino Transferase 142 U/L (0-37); Bilirubin,Indirect 1.6 MG/DL (0.0-1.0); Blood Urea Nitrogen < 1 MG/DL (7-18); Calcium 7.3 MG/DL (8.5-10.1); Glucose 71 MG/DL (74-106); Osmolality,Calculated 274.6 MOS/KG (273-304); Potassium 3.8 MMOL/L (3.5-5.1); Sodium 141 MMOL/L (136-145); Total Protein 4.3 G/DL (6.4-8.3)
[2017-12-10] MEDS ORDERED: MAGNESIUM SULF RIDER 2 GM in PREMIX 1 EACH IV ONE (09:00)
[2017-12-10] MEDS ORDERED: CEFOTAXIME IV SCH (13:00)
[2017-12-10] MEDS ORDERED: SODIUM CHLORIDE 0.9% IV SCH (13:00)
[2017-12-10] MEDS: cefTRIAXone 1,000 MG in SYRINGE 1 EACH IV SCH (14:15)
[2017-12-10] MEDS: ENOXAPARIN 40 MG/0.4 ML SYRINGE SUBCUT SCH (20:28)
[2017-12-11 05:15] LABS: Basophils % 0.6 % (0.0-0.8); Eosinophils # 0.1 10*3/uL (0.0-0.87); Eosinophils % 0.7 % (0.00-10.9); Hematocrit 34.4 VOL% (35.7-47.0); Hemoglobin 11.1 GM/DL (12.0-16.0); Immature Granulocytes % 5.4 %; Immature Granulocytes Absolute 0.38 #; Lymphocytes # 2.4 10*3/uL (1.4-4.0); Lymphocytes % 33.1 % (21.3-54.2); Mean Corpuscular HGB Conc 32.3 GM/DL (32-36); Mean Corpuscular Hemoglobin 32 PG (27-34); Mean Corpuscular Volume 98.6 FL (87-102); Mean Platelet Volume 10.3 FL (9.6-12.0); Monocytes % 14.2 % (1.7-12.7); NRBC # 0.03 10*3/uL; Neutrophils # 3.3 10*3/uL (1.4-7.4); Platelet Count 201 T/CUMM (130-400); Red Blood Count 3.49 MC/CUMM (3.8-5.5); Red Cell Distribution Width 18.9 % (9.3-17.3); White Blood Count 7.1 T/CUMM (4-12)
[2017-12-11 05:19] LABS: INR 1.3; PT Patient Result 13.2 SECS
[2017-12-11 05:36] LABS: Band Neutrophils 1 % (0-10); Eosinophils 3 % (0-10); Giant Platelets Few; Hypochromasia 1+; Lymphocytes 28 % (20-55); Platelet Estimate Adequate; Segmented Neutrophils 58 % (50-85); Total Cells Counted 100
[2017-12-11 05:37] LABS: Macrocytosis Slight; Polychromasia Slight
[2017-12-11 05:45] LABS: Alanine Aminotransferase 154 U/L (13-56); Albumin 1.8 G/DL (3.4-5.0); Alkaline Phosphatase 335 U/L (45-117); Aspartate Amino Transferase 166 U/L (0-37); Blood Urea Nitrogen < 1 MG/DL (7-18); Calcium 8.2 MG/DL (8.5-10.1); Glucose 87 MG/DL (74-106); Osmolality,Calculated 277.5 MOS/KG (273-304); Potassium 3.7 MMOL/L (3.5-5.1); Sodium 142 MMOL/L (136-145); Total Protein 5.2 G/DL (6.4-8.3)
[2017-12-11 05:51] LABS: Alanine Aminotransferase 159 U/L (13-56); Albumin 1.8 G/DL (3.4-5.0); Alkaline Phosphatase 343 U/L (45-117); Aspartate Amino Transferase 171 U/L (0-37); Bilirubin,Indirect 2.1 MG/DL (0.0-1.0); Blood Urea Nitrogen < 1 MG/DL (7-18); Calcium 8.1 MG/DL (8.5-10.1); Glucose 85 MG/DL (74-106); Osmolality,Calculated 277.5 MOS/KG (273-304); Potassium 3.6 MMOL/L (3.5-5.1); Sodium 142 MMOL/L (136-145); Total Protein 5.2 G/DL (6.4-8.3)
[2017-12-11] MEDS: LACTULOSE 20 GM/30 ML UDCUP PO SCH ×4 (06:00→23:13)
[2017-12-11] MEDS: cefTRIAXone 1,000 MG in SYRINGE 1 EACH IV SCH ×2 (08:28→20:43)
[2017-12-11] MEDS: ZIPRASIDONE 20 MG CAPSULE PO PRN ×2 (16:38→23:13)
[2017-12-11] MEDS: ENOXAPARIN 40 MG/0.4 ML SYRINGE SUBCUT SCH (20:43)
[2017-12-12] MEDS: LACTULOSE 20 GM/30 ML UDCUP PO SCH ×2 (05:46→11:47)
[2017-12-12 06:24] LABS: Basophils % 0.4 % (0.0-0.8); Eosinophils % 0.5 % (0.00-10.9); Hemoglobin 11.4 GM/DL (12.0-16.0); Immature Granulocytes % 2.7 %; Immature Granulocytes Absolute 0.21 #; Lymphocytes # 2.2 10*3/uL (1.4-4.0); Lymphocytes % 27.6 % (21.3-54.2); Mean Corpuscular HGB Conc 33.5 GM/DL (32-36); Mean Corpuscular Hemoglobin 33 PG (27-34); Mean Platelet Volume 10.3 FL (9.6-12.0); Monocytes # 1.1 10*3/uL (0.11-0.8); Monocytes % 14.1 % (1.7-12.7); NRBC # 0.02 10*3/uL; Neutrophils # 4.3 10*3/uL (1.4-7.4); Neutrophils % 54.7 % (38.7-73.9); Platelet Count 217 T/CUMM (130-400); Red Blood Count 3.47 MC/CUMM (3.8-5.5); Red Cell Distribution Width 19.1 % (9.3-17.3); White Blood Count 7.8 T/CUMM (4-12)
[2017-12-12 06:53] LABS: Calcium 7.9 MG/DL (8.5-10.1); Osmolality,Calculated 277.3 MOS/KG (273-304); Potassium 3.5 MMOL/L (3.5-5.1)
[2017-12-12] MEDS ORDERED: PROMETHAZINE 25 MG TABLET PO PRN (09:50)
[2017-12-12] MEDS: cefTRIAXone 1,000 MG in SYRINGE 1 EACH IV SCH (11:47)
[2017-12-12] MEDS: ZIPRASIDONE 20 MG CAPSULE PO PRN ×2 (11:49→18:31)
[2017-12-12] MEDS: FOLIC ACID 1 MG TABLET PO SCH (21:22)
[2017-12-12] MEDS: ENOXAPARIN 40 MG/0.4 ML SYRINGE SUBCUT SCH (21:22)
[2017-12-13] MEDS: ZIPRASIDONE 20 MG CAPSULE PO PRN ×3 (04:30→22:55)
[2017-12-13 05:29] LABS: Alanine Aminotransferase 109 U/L (13-56); Albumin 1.5 G/DL (3.4-5.0); Alkaline Phosphatase 270 U/L (45-117); Aspartate Amino Transferase 156 U/L (0-37); Bilirubin,Indirect 1.9 MG/DL (0.0-1.0); Blood Urea Nitrogen < 1 MG/DL (7-18); Calcium 8.2 MG/DL (8.5-10.1); Glucose 66 MG/DL (74-106); Osmolality,Calculated 280.2 MOS/KG (273-304); Potassium 3.8 MMOL/L (3.5-5.1); Sodium 144 MMOL/L (136-145); Total Protein 4.7 G/DL (6.4-8.3)
[2017-12-13] MEDS: LACTULOSE 20 GM/30 ML UDCUP PO SCH ×2 (10:57→13:19)
[2017-12-13] MEDS: ENOXAPARIN 40 MG/0.4 ML SYRINGE SUBCUT SCH (20:33)
[2017-12-13] MEDS: FOLIC ACID 1 MG TABLET PO SCH (20:37)
[2017-12-14 05:20] LABS: Basophils # 0.1 10*3/uL (0.0-0.2); Basophils % 0.7 % (0.0-0.8); Eosinophils # 0.1 10*3/uL (0.0-0.87); Eosinophils % 0.6 % (0.00-10.9); Hematocrit 31.7 VOL% (35.7-47.0); Hemoglobin 10.6 GM/DL (12.0-16.0); Immature Granulocytes % 2.9 %; Immature Granulocytes Absolute 0.28 #; Lymphocytes # 2.5 10*3/uL (1.4-4.0); Lymphocytes % 26.1 % (21.3-54.2); Mean Corpuscular HGB Conc 33.4 GM/DL (32-36); Mean Corpuscular Hemoglobin 33 PG (27-34); Mean Corpuscular Volume 97.2 FL (87-102); Monocytes # 1.2 10*3/uL (0.11-0.8); Monocytes % 12.1 % (1.7-12.7); NRBC # 0.02 10*3/uL; Neutrophils # 5.6 10*3/uL (1.4-7.4); Neutrophils % 57.6 % (38.7-73.9); Platelet Count 229 T/CUMM (130-400); Red Blood Count 3.26 MC/CUMM (3.8-5.5); Red Cell Distribution Width 18.4 % (9.3-17.3); White Blood Count 9.7 T/CUMM (4-12)
[2017-12-14 05:40] LABS: Albumin 1.6 G/DL (3.4-5.0); Bilirubin,Direct 7.65 MG/DL (0.0-0.20); Bilirubin,Indirect 2.3 MG/DL (0.0-1.0); Bilirubin,Total 9.9 MG/DL (0.2-1.0); Osmolality,Calculated 275.3 MOS/KG (273-304); Potassium 3.4 MMOL/L (3.5-5.1); Total Protein 4.7 G/DL (6.4-8.3)
[2017-12-14] MEDS: LACTULOSE 20 GM/30 ML UDCUP PO SCH (08:04)
[2017-12-14] MEDS: POTASSIUM CHLORIDE 20 MEQ TABLET PO ONE ×2 (17:02→18:55)
[2017-12-14] MEDS: ENOXAPARIN 40 MG/0.4 ML SYRINGE SUBCUT SCH (20:08)
[2017-12-14] MEDS: FOLIC ACID 1 MG TABLET PO SCH (20:08)
[2017-12-14] MEDS: GABAPENTIN 100 MG CAPSULE PO SCH (20:08)
[2017-12-15] MEDS: ZIPRASIDONE 20 MG CAPSULE PO PRN (03:37)
[2017-12-15 07:56] VITALS: BP 102/78
[2017-12-15] MEDS: GABAPENTIN 100 MG CAPSULE PO SCH (08:42)
[2017-12-15] MEDS: LACTULOSE 20 GM/30 ML UDCUP PO SCH (08:43)
[2017-12-16 10:35] LABS: Biotin (Vitamin B7) < 100.0 pg/mL
== END 2017-12-15 12:30 | disposition home health service (06) | DRG 871 ==
LOC: N.ED 09:59 → N.EDINP 13:32 → SUATTDRO 13:32 → N.ICU 16:20 → N.2E 12-07 18:11
PROVIDERS: ADMIT Internal Medicine Geriatric Medicine; ATTEND Internal Medicine

== ENCOUNTER 2017-12-23 19:54 | Inpatient (IN) ==
[2017-12-23] MEDS ORDERED: ONDANSETRON 4 MG/2 ML VIAL IV STA (22:11)
[2017-12-23 22:19] LABS: Basophils # 0.1 10*3/uL (0.0-0.2); Basophils % 0.7 % (0.0-0.8); Eosinophils # 0.1 10*3/uL (0.0-0.87); Hematocrit 40.8 VOL% (35.7-47.0); Immature Granulocytes % 1.1 %; Immature Granulocytes Absolute 0.13 #; Lymphocytes # 2.7 10*3/uL (1.4-4.0); Lymphocytes % 22.8 % (21.3-54.2); Mean Corpuscular HGB Conc 31.9 GM/DL (32-36); Mean Corpuscular Hemoglobin 32 PG (27-34); Mean Corpuscular Volume 99.5 FL (87-102); Mean Platelet Volume 10.5 FL (9.6-12.0); Monocytes # 1.1 10*3/uL (0.11-0.8); Monocytes % 8.9 % (1.7-12.7); Neutrophils # 7.9 10*3/uL (1.4-7.4); Neutrophils % 65.5 % (38.7-73.9); Platelet Count 319 T/CUMM (130-400); Red Cell Distribution Width 16.4 % (9.3-17.3)
[2017-12-23 22:25] LABS: INR 1.4; PT Patient Result 14.1 SECS; Partial Thromboplastin Time 30.8 SECS (0-40)
[2017-12-23 22:35] LABS: Albumin 1.9 G/DL (3.4-5.0); Calcium 8.6 MG/DL (8.5-10.1); Osmolality,Calculated 281.1 MOS/KG (273-304); Potassium 3.2 MMOL/L (3.5-5.1); Total Protein 6.4 G/DL (6.4-8.3)
[2017-12-23 22:39] LABS: Bilirubin,Total 16.5 MG/DL (0.2-1.0)
[2017-12-23] MEDS ORDERED: ONDANSETRON 4 MG/2 ML VIAL ONE (23:21)
[2017-12-23] MEDS ORDERED: methylPREDNISolone SOD SUC 125 MG/2 ML VIAL IV STA (23:22)
[2017-12-23] MEDS ORDERED: diphenhydrAMINE 50 MG/1 ML VIAL IV STA (23:22)
[2017-12-23] MEDS ORDERED: FAMOTIDINE 20 MG/2 ML VIAL IV STA (23:22)
[2017-12-23] MEDS ORDERED: methylPREDNISolone SOD SUC 125 MG/2 ML VIAL ONE (23:32)
[2017-12-23] MEDS ORDERED: diphenhydrAMINE 50 MG/1 ML VIAL ONE (23:32)
[2017-12-23] MEDS ORDERED: FAMOTIDINE 20 MG/2 ML VIAL IV ONE (23:33)
[2017-12-24] MEDS ORDERED: ONDANSETRON 4 MG/2 ML VIAL IV PRN (02:07)
[2017-12-24 06:16] LABS: Basophils % 0.4 % (0.0-0.8); Eosinophils % 0.1 % (0.00-10.9); Hematocrit 34.7 VOL% (35.7-47.0); Hemoglobin 11.4 GM/DL (12.0-16.0); Immature Granulocytes % 1.2 %; Immature Granulocytes Absolute 0.08 #; Lymphocytes % 14.4 % (21.3-54.2); Mean Corpuscular HGB Conc 32.9 GM/DL (32-36); Mean Corpuscular Hemoglobin 32 PG (27-34); Mean Corpuscular Volume 96.1 FL (87-102); Mean Platelet Volume 10.4 FL (9.6-12.0); Monocytes # 0.1 10*3/uL (0.11-0.8); Monocytes % 1.6 % (1.7-12.7); Neutrophils # 5.7 10*3/uL (1.4-7.4); Neutrophils % 82.3 % (38.7-73.9); Platelet Count 268 T/CUMM (130-400); Red Blood Count 3.61 MC/CUMM (3.8-5.5); Red Cell Distribution Width 16.1 % (9.3-17.3); White Blood Count 6.9 T/CUMM (4-12)
[2017-12-24 06:43] LABS: Albumin 1.4 G/DL (3.4-5.0); Calcium 7.8 MG/DL (8.5-10.1); Osmolality,Calculated 282.3 MOS/KG (273-304); Potassium 3.6 MMOL/L (3.5-5.1)
[2017-12-24 07:01] LABS: Bilirubin,Total 12.7 MG/DL (0.2-1.0)
[2017-12-24 07:31] LABS: Barbiturates Screen,Urine Negative (Negative); Benzodiazepines Screen,Urine Negative (Negative); Cannabinoid Screen,Urine Negative (Negative); Opiate Screen,Urine Negative (Negative); Phencyclidine Screen,Urine Negative (Negative)
[2017-12-24 07:38] LABS: Apearance,Urine Slightly Hazy (Clear); Blood, Urine Negative (Negative); Glucose,Urine (UA) Negative (Negative); Hyaline Casts,Urine 4 /LPF (0-3); Ketones,Urine Negative (Negative); Mucus,Urine Occasional /LPF (Occasional); Nitrite,Urine Negative (Negative); Protein,Urine Negative; RBC,Urine 3 /HPF (0-4); Squamous Epithelial Cell,Urine Few /HPF (0-10); Urine Color Amber (Yellow); Urine Specific Gravity 1.054 (1.001-1.035); WBC,Urine 23 /HPF (0-6)
[2017-12-24 07:43] LABS: Bilirubin,Urine Moderate mg/dL (Negative)
[2017-12-24] MEDS: GABAPENTIN 100 MG CAPSULE PO SCH ×2 (09:36→20:40)
[2017-12-24] MEDS: PANTOPRAZOLE 40 MG TABLET PO SCH (09:36)
[2017-12-24] MEDS: POTASSIUM CHLORIDE 20 MEQ TABLET PO SCH ×2 (09:36→09:41)
[2017-12-24] MEDS ORDERED: ZIPRASIDONE 20 MG/1 ML VIAL IM PRN (20:24)
[2017-12-25 05:21] LABS: Basophils % 0.2 % (0.0-0.8); Eosinophils % 0.2 % (0.00-10.9); Hematocrit 36.6 VOL% (35.7-47.0); Hemoglobin 11.7 GM/DL (12.0-16.0); Immature Granulocytes % 1.2 %; Immature Granulocytes Absolute 0.15 #; Lymphocytes # 2.9 10*3/uL (1.4-4.0); Mean Corpuscular Hemoglobin 31 PG (27-34); Mean Corpuscular Volume 98.1 FL (87-102); Mean Platelet Volume 9.9 FL (9.6-12.0); Monocytes # 1.4 10*3/uL (0.11-0.8); Neutrophils # 8.1 10*3/uL (1.4-7.4); Neutrophils % 64.4 % (38.7-73.9); Platelet Count 316 T/CUMM (130-400); Red Blood Count 3.73 MC/CUMM (3.8-5.5); White Blood Count 12.6 T/CUMM (4-12)
[2017-12-25 05:56] LABS: Albumin 1.5 G/DL (3.4-5.0); Calcium 8.3 MG/DL (8.5-10.1); Osmolality,Calculated 287.6 MOS/KG (273-304); Potassium 3.5 MMOL/L (3.5-5.1)
[2017-12-25 06:03] LABS: Bilirubin,Total 12.1 MG/DL (0.2-1.0)
[2017-12-25] MEDS: GABAPENTIN 100 MG CAPSULE PO SCH ×2 (08:58→21:14)
[2017-12-25] MEDS: POTASSIUM CHLORIDE 20 MEQ TABLET PO SCH ×2 (08:58→09:08)
[2017-12-25] MEDS: PANTOPRAZOLE 40 MG TABLET PO SCH (08:58)
[2017-12-25] MEDS ORDERED: DEXTROSE 50% 25 GM/50 ML VIAL IV PRN (11:05)
[2017-12-25] MEDS: cefTRIAXone 1,000 MG in SYRINGE 1 EACH IV SCH (14:36)
[2017-12-25] MEDS ORDERED: SODIUM CHLOR 0.45% KCL 20 MEQ 20 MEQ/1,000 ML BAG IV SCH (15:00)
[2017-12-25] MEDS ORDERED: LACTULOSE 20 GM/30 ML UDCUP PO SCH (15:00)
[2017-12-25] MEDS: SODIUM CHLORIDE 0.9% 1,000 ML IV SCH (15:12)
[2017-12-25] MEDS: LACTULOSE 20 GM/30 ML UDCUP PO SCH (15:51)
[2017-12-25] MEDS: ZIPRASIDONE 20 MG CAPSULE PO PRN (21:14)
[2017-12-26 05:36] LABS: Basophils % 0.4 % (0.0-0.8); Eosinophils # 0.2 10*3/uL (0.0-0.87); Eosinophils % 2.4 % (0.00-10.9); Hematocrit 30.7 VOL% (35.7-47.0); Hemoglobin 10.1 GM/DL (12.0-16.0); Immature Granulocytes % 1.1 %; Immature Granulocytes Absolute 0.08 #; Lymphocytes # 2.7 10*3/uL (1.4-4.0); Lymphocytes % 36.5 % (21.3-54.2); Mean Corpuscular HGB Conc 32.9 GM/DL (32-36); Mean Corpuscular Hemoglobin 32 PG (27-34); Mean Corpuscular Volume 96.2 FL (87-102); Mean Platelet Volume 9.9 FL (9.6-12.0); Monocytes # 0.8 10*3/uL (0.11-0.8); Monocytes % 10.2 % (1.7-12.7); Neutrophils # 3.7 10*3/uL (1.4-7.4); Neutrophils % 49.4 % (38.7-73.9); Platelet Count 243 T/CUMM (130-400); Red Blood Count 3.19 MC/CUMM (3.8-5.5); Red Cell Distribution Width 15.9 % (9.3-17.3); White Blood Count 7.5 T/CUMM (4-12)
[2017-12-26] MEDS: SODIUM CHLORIDE 0.9% 1,000 ML IV SCH (05:50)
[2017-12-26 06:02] LABS: Albumin 1.2 G/DL (3.4-5.0); Bilirubin,Total 9.9 MG/DL (0.2-1.0); Calcium 7.6 MG/DL (8.5-10.1); Osmolality,Calculated 286.6 MOS/KG (273-304); Potassium 3.2 MMOL/L (3.5-5.1); Total Protein 4.3 G/DL (6.4-8.3)
[2017-12-26] MEDS: GABAPENTIN 100 MG CAPSULE PO SCH ×2 (08:43→20:53)
[2017-12-26] MEDS: PANTOPRAZOLE 40 MG TABLET PO SCH (08:43)
[2017-12-26] MEDS: POTASSIUM CHLORIDE 20 MEQ TABLET PO SCH (08:46)
[2017-12-26] MEDS: LACTULOSE 20 GM/30 ML UDCUP PO SCH (08:49)
[2017-12-26] MEDS: ZIPRASIDONE 20 MG CAPSULE PO PRN ×2 (09:05→20:52)
[2017-12-26] MEDS: POTASSIUM CHLORIDE RIDER 10 MEQ in PREMIX 1 EACH IV SCH ×2 (12:49→14:33)
[2017-12-26] MEDS: cefTRIAXone 1,000 MG in SYRINGE 1 EACH IV SCH (16:43)
[2017-12-27] MEDS: SODIUM CHLORIDE 0.9% 1,000 ML IV SCH (03:30)
[2017-12-27 04:17] LABS: Basophils # 0.1 10*3/uL (0.0-0.2); Basophils % 0.6 % (0.0-0.8); Eosinophils # 0.2 10*3/uL (0.0-0.87); Eosinophils % 2.3 % (0.00-10.9); Hematocrit 34.5 VOL% (35.7-47.0); Hemoglobin 11.2 GM/DL (12.0-16.0); Immature Granulocytes % 2.9 %; Immature Granulocytes Absolute 0.29 #; Lymphocytes # 3.3 10*3/uL (1.4-4.0); Lymphocytes % 32.7 % (21.3-54.2); Mean Corpuscular HGB Conc 32.5 GM/DL (32-36); Mean Corpuscular Hemoglobin 31 PG (27-34); Mean Corpuscular Volume 96.4 FL (87-102); Monocytes # 1.1 10*3/uL (0.11-0.8); Monocytes % 11.1 % (1.7-12.7); Neutrophils # 5.1 10*3/uL (1.4-7.4); Neutrophils % 50.4 % (38.7-73.9); Platelet Count 252 T/CUMM (130-400); Red Blood Count 3.58 MC/CUMM (3.8-5.5); Red Cell Distribution Width 15.4 % (9.3-17.3); White Blood Count 10.1 T/CUMM (4-12)
[2017-12-27 04:51] LABS: Albumin 1.4 G/DL (3.4-5.0); Bilirubin,Total 11.2 MG/DL (0.2-1.0); Calcium 7.9 MG/DL (8.5-10.1); Osmolality,Calculated 278.3 MOS/KG (273-304); Total Protein 5.1 G/DL (6.4-8.3)
[2017-12-27] MEDS: PANTOPRAZOLE 40 MG TABLET PO SCH (08:54)
[2017-12-27] MEDS: GABAPENTIN 100 MG CAPSULE PO SCH (08:54)
[2017-12-27] MEDS ORDERED: POTASSIUM CHLORIDE 10 MEQ TABLET PO SCH (09:00)
[2017-12-27] MEDS ORDERED: POTASSIUM CHLORIDE 20 MEQ TABLET PO SCH (09:00)
[2017-12-27] MEDS: LACTULOSE 20 GM/30 ML UDCUP PO SCH (09:02)
[2017-12-27] MEDS ORDERED: ZIPRASIDONE 20 MG/1 ML VIAL IM PRN (09:03)
[2017-12-27 12:03] VITALS: BP 87/59
== END 2017-12-27 13:50 | disposition home or self-care (01) | DRG 433 ==
LOC: N.ED 19:54 → N.EDINP 12-24 02:07 → N.2E 12-24 02:36
PROVIDERS: ADMIT Internal Medicine; ATTEND Internal Medicine

== ENCOUNTER 2021-06-05 19:37 | Inpatient (IN) ==
[2021-06-05] MEDS ORDERED: HYDROmorphone 2 MG/1 ML VIAL ONE (20:47)
[2021-06-05] MEDS ORDERED: ONDANSETRON 4 MG/2 ML VIAL ONE ×2 (20:47→20:53)
[2021-06-05] MEDS ORDERED: MORPHINE 2 MG/1 ML SYRINGE ONE (20:53)
[2021-06-05 20:55] LABS: Basophils % 0.4 % (0.0-0.8); Eosinophils # 0.3 10*3/uL (0.0-0.87); Eosinophils % 2.7 % (0.00-10.9); Hemoglobin 9.2 GM/DL (12.0-16.0); Immature Granulocytes % 1.1 %; Lymphocytes # 1.3 10*3/uL (1.4-4.0); Mean Corpuscular HGB Conc 31.7 GM/DL (32-36); Mean Platelet Volume 8.6 FL (9.6-12.0); Monocytes % 8.8 % (1.7-12.7); Platelet Count 572 T/CUMM (130-400); Red Blood Count 2.87 MC/CUMM (3.8-5.5); White Blood Count 9.3 T/CUMM (4-12)
[2021-06-05] MEDS ORDERED: HYDROmorphone 2 MG/1 ML VIAL IM STA (21:06)
[2021-06-05 21:18] LABS: Alanine Aminotransferase < 9 U/L (13-56); Albumin 2.1 G/DL (3.4-5.0); Alkaline Phosphatase 126 U/L (45-117); Aspartate Amino Transferase 18 U/L (0-37); Bilirubin,Total < 0.39 MG/DL (0.20-1.00); Blood Urea Nitrogen 26 MG/DL (7-18); Calcium 8.5 MG/DL (8.5-10.1); Carbon Dioxide 16 MMOL/L (21-32); Estimated Glom Filtration Rate 18 ML/MIN; Glucose 99 MG/DL (74-106); Osmolality,Calculated 287.1 MOS/KG (273-304); Potassium 2.9 MMOL/L (3.5-5.1); Sodium 142 MMOL/L (136-145); Total Protein 6.4 G/DL (6.4-8.2)
[2021-06-05] MEDS ORDERED: MORPHINE 2 MG/1 ML SYRINGE IV STA (21:18)
[2021-06-05] MEDS ORDERED: ONDANSETRON 4 MG/2 ML VIAL IV STA (21:19)
[2021-06-05] MEDS ORDERED: GLUCAGON 1 MG VIAL IM PRN (21:49)
[2021-06-05] MEDS ORDERED: DEXTROSE 50% 25 GM/50 ML VIAL IV PRN (21:49)
[2021-06-05] MEDS ORDERED: ONDANSETRON 4 MG/2 ML VIAL IV PRN (21:49)
[2021-06-05] MEDS ORDERED: cefTRIAXone 2,000 MG in SODIUM CHLORIDE 0.9% 100 ML IV STA (21:51)
[2021-06-05] MEDS ORDERED: HYDROmorphone 2 MG/1 ML VIAL IV PRN (21:56)
[2021-06-05] MEDS ORDERED: OXYCODONE ACETAMINOPHEN PO PRN (21:57)
[2021-06-05] MEDS ORDERED: METHOCARBAMOL 500 MG TABLET PO PRN (21:57)
[2021-06-05 22:58] LABS: Bacteria,Urine Occasional /HPF (Few); Bilirubin,Urine Negative (Negative); Blood, Urine Moderate mg/dL (Negative); Glucose,Urine (UA) Negative (Negative); Hyaline Casts,Urine 1 /LPF (0-3); Ketones,Urine Negative (Negative); Nitrite,Urine Negative (Negative); Protein,Urine Negative; RBC,Urine 5 /HPF (0-4); Squamous Epithelial Cell,Urine Occasional /HPF (0-10); Urine Appearance CLEAR (Clear); Urine Color Straw (Yellow); Urine Specific Gravity 1.005 (1.001-1.035); Urine Urobilinogen < 2.0 EU/DL (0.2-1.0)
[2021-06-06] MEDS ORDERED: POTASSIUM CHLORIDE 20 MEQ TABLET PO ONE (00:05)
[2021-06-06] MEDS: SODIUM BICARB INJ 50 MEQ in SODIUM CHLORIDE 0.45% 1,000 ML IV SCH ×2 (01:23→11:40)
[2021-06-06] MEDS: MORPHINE 2 MG/1 ML SYRINGE IV PRN ×4 (01:25→20:08)
[2021-06-06] MEDS: oxyCODONE/ACETAMINOPHEN 5-325 MG TABLET PO PRN ×4 (02:12→23:45)
[2021-06-06 06:08] LABS: Basophils % 0.4 % (0.0-0.8); Eosinophils # 0.3 10*3/uL (0.0-0.87); Eosinophils % 3.8 % (0.00-10.9); Hematocrit 23.1 VOL% (35.7-47.0); Immature Granulocytes % 0.9 %; Immature Granulocytes Absolute 0.07 #; Lymphocytes # 1.7 10*3/uL (1.4-4.0); Lymphocytes % 21.9 % (21.3-54.2); Mean Platelet Volume 8.5 FL (9.6-12.0); Monocytes % 10.3 % (1.7-12.7); Neutrophils % 62.7 % (38.7-73.9); Red Blood Count 2.31 MC/CUMM (3.8-5.5); Red Cell Distribution Width 17.8 % (9.3-17.3); White Blood Count 7.7 T/CUMM (4-12)
[2021-06-06 06:13] LABS: Hemoglobin 7.4 GM/DL (12.0-16.0); Platelet Count 466 T/CUMM (130-400)
[2021-06-06 06:18] LABS: Alanine Aminotransferase < 6 U/L (13-56); Albumin 1.7 G/DL (3.4-5.0); Alkaline Phosphatase 102 U/L (45-117); Aspartate Amino Transferase 12 U/L (0-37); Blood Urea Nitrogen 24 MG/DL (7-18); Carbon Dioxide 16 MMOL/L (21-32); Estimated Glom Filtration Rate 23 ML/MIN; Glucose 94 MG/DL (74-106); Osmolality,Calculated 289.8 MOS/KG (273-304); Potassium 2.8 MMOL/L (3.5-5.1); Sodium 144 MMOL/L (136-145); Total Protein 5.2 G/DL (6.4-8.2)
[2021-06-06] MEDS ORDERED: POTASSIUM CHLORIDE 20 MEQ TABLET PO PRN ×2 (06:41→09:00)
[2021-06-06] MEDS ORDERED: CEFTRIAXONE 2 GM IV SCH (09:00)
[2021-06-06] MEDS ORDERED: PANTOPRAZOLE 40 MG TABLET PO SCH (09:00)
[2021-06-06] MEDS: atenoloL 50 MG TABLET PO SCH (09:32)
[2021-06-06] MEDS: APIXABAN 2.5 MG TABLET PO SCH ×2 (09:32→20:07)
[2021-06-06] MEDS: POTASSIUM CHLORIDE RIDER 10 MEQ/100 ML PREMIX IV PRN ×5 (09:49→17:49)
[2021-06-06] MEDS: SODIUM CHLORIDE 23.4% CONC INJ 38.5 MEQ, SODIUM BICARB INJ 50 MEQ in STERILE WATER INJ ... IV SCH (17:29)
[2021-06-06] MEDS ORDERED: EPOETIN ALFA-EPBX 10,000 UNIT/ML VIAL SUBCUT ONE (20:42)
[2021-06-06] MEDS ORDERED: cefTRIAXone 2,000 MG in SODIUM CHLORIDE 0.9% 100 ML IV SCH (22:00)
[2021-06-07] MEDS: SODIUM CHLORIDE 23.4% CONC INJ 38.5 MEQ, SODIUM BICARB INJ 50 MEQ in STERILE WATER INJ ... IV SCH ×2 (05:09→11:10)
[2021-06-07] MEDS ORDERED: MAGNESIUM SULF RIDER 4 GM/100 ML PREMIX IV PRN (07:12)
[2021-06-07] MEDS ORDERED: MAGNESIUM SULF RIDER 2 GM/50 ML PREMIX IV PRN (07:12)
[2021-06-07 07:23] LABS: Basophils % 0.2 % (0.0-0.8); Eosinophils # 0.3 10*3/uL (0.0-0.87); Eosinophils % 3.2 % (0.00-10.9); Hematocrit 23.8 VOL% (35.7-47.0); Hemoglobin 7.6 GM/DL (12.0-16.0); Immature Granulocytes Absolute 0.08 #; Lymphocytes # 1.7 10*3/uL (1.4-4.0); Lymphocytes % 20.7 % (21.3-54.2); Mean Corpuscular HGB Conc 31.9 GM/DL (32-36); Mean Corpuscular Volume 101.3 FL (87-102); Mean Platelet Volume 8.7 FL (9.6-12.0); Monocytes % 9.6 % (1.7-12.7); Neutrophils % 65.3 % (38.7-73.9); Platelet Count 502 T/CUMM (130-400); Red Blood Count 2.35 MC/CUMM (3.8-5.5); Red Cell Distribution Width 18.2 % (9.3-17.3); White Blood Count 8.1 T/CUMM (4-12)
[2021-06-07 08:04] LABS: Calcium 8.1 MG/DL (8.5-10.1); Osmolality,Calculated 290.7 MOS/KG (273-304); Potassium 3.3 MMOL/L (3.5-5.1)
[2021-06-07] MEDS ORDERED: POTASSIUM CHLORIDE 20 MEQ TABLET PO PRN (08:58)
[2021-06-07] MEDS ORDERED: FAMOTIDINE 20 MG TABLET PO SCH (09:00)
[2021-06-07] MEDS: APIXABAN 2.5 MG TABLET PO SCH (09:21)
[2021-06-07] MEDS: atenoloL 50 MG TABLET PO SCH (09:22)
[2021-06-07] MEDS: oxyCODONE/ACETAMINOPHEN 5-325 MG TABLET PO PRN ×2 (09:25→15:49)
[2021-06-07] MEDS: MORPHINE 2 MG/1 ML SYRINGE IV PRN (13:23)
[2021-06-07] MEDS ORDERED: SODIUM CHLORIDE 0.9% 1,000 ML IV PRN (13:43)
[2021-06-07 15:21] LABS: % Iron Saturation 14.7 % (18-50)
[2021-06-07 15:25] LABS: Folate 3.3 NG/ML (5.38-24.0)
[2021-06-07 16:03] VITALS: BP 92/64
[2021-06-07] MEDS ORDERED: DAPTOmycin 500 MG VIAL IV SCH (22:00)
== END 2021-06-07 19:36 | disposition home health service (06) | DRG 683 ==
LOC: EDBD → EDUNIT# → N.ED 19:37 → SUATTDRO 21:49 → N.EDINP 21:49 → N.TELES 06-06
PROVIDERS: ADMIT Internal Medicine; ATTEND Hospitalist

== ENCOUNTER 2022-12-03 18:27 | Inpatient (IN) ==
[2022-12-03] MEDS ORDERED: ONDANSETRON 4 MG/2 ML VIAL IV STA (20:40)
[2022-12-03] MEDS ORDERED: MORPHINE 2 MG/1 ML SYRINGE IV STA (20:40)
[2022-12-03] MEDS ORDERED: SODIUM CHLORIDE 0.9% 1,000 ML IV STA (20:40)
[2022-12-03 21:08] LABS: Eosinophils % 0.3 % (0.00-10.9); Hemoglobin 14.7 GM/DL (12.0-16.0); Immature Granulocytes % 0.3 %; Immature Granulocytes Absolute 0.02 #; Lymphocytes # 1.4 10*3/uL (1.4-4.0); Lymphocytes % 23.9 % (21.3-54.2); Mean Corpuscular HGB Conc 35.9 GM/DL (32-36); Mean Corpuscular Volume 90.3 FL (87-102); Mean Platelet Volume 8.2 FL (9.6-12.0); Monocytes # 0.2 10*3/uL (0.11-0.8); Monocytes % 3.1 % (1.7-12.7); Neutrophils % 72.4 % (38.7-73.9); Platelet Count 353 T/CUMM (130-400); Red Blood Count 4.54 MC/CUMM (3.8-5.5); Red Cell Distribution Width 15.2 % (9.3-17.3); White Blood Count 5.85 T/CUMM (4-12)
[2022-12-03 21:28] LABS: Alanine Aminotransferase 35 U/L (13-56); Albumin 3.5 G/DL (3.4-5.0); Alkaline Phosphatase 296 U/L (45-117); Aspartate Amino Transferase 38 U/L (0-37); Blood Urea Nitrogen 3 MG/DL (7-18); Calcium 8.3 MG/DL (8.5-10.1); Carbon Dioxide 17 MMOL/L (21-32); Chloride 85 MMOL/L (98-107); Glucose 84 MG/DL (74-106); Osmolality,Calculated 233.5 MOS/KG (273-304); Potassium 3.3 MMOL/L (3.5-5.1); Total Protein 8.2 G/DL (6.4-8.2)
[2022-12-03 21:31] LABS: Sodium 118 MMOL/L (136-145)
[2022-12-03 21:38] LABS: Thyroid Stimulating Hormone 0.681 uIU/ml (0.358-3.74)
[2022-12-03 22:02] LABS: RBC,Urine <1 /HPF (0-4); Squamous Epithelial Cell,Urine Occasional /HPF (0-10)
[2022-12-03 22:04] LABS: Urine Color Yellow (Yellow)
[2022-12-03 22:05] LABS: Bilirubin,Urine Negative (Negative); Blood, Urine Small mg/dL (Negative); Glucose,Urine (UA) Negative (Negative); Ketones,Urine 80 mg/dL (Negative); Nitrite,Urine Negative (Negative); Protein,Urine Negative (Negative); Urine Appearance Clear (Clear); Urine Specific Gravity 1.015 (1.001-1.035); Urine Urobilinogen 0.2 eU/dL (<2.0); Urine pH 6.5 (4.5-8.0)
[2022-12-03] MEDS ORDERED: oxyCODONE/ACETAMINOPHEN 5-325 MG TABLET PO STA (23:35)
[2022-12-04] MEDS ORDERED: MORPHINE 2 MG/1 ML SYRINGE IV PRN (00:02)
[2022-12-04] MEDS ORDERED: LACTULOSE 20 GM/30 ML UDCUP PO STA (00:05)
[2022-12-04] MEDS ORDERED: POTASSIUM CHLORIDE 20 MEQ TABLET PO STA (00:10)
[2022-12-04] MEDS ORDERED: IBUPROFEN 800 MG TABLET PO STA (01:07)
[2022-12-04] MEDS ORDERED: IBUPROFEN 800 MG TABLET PO PRN (01:07)
[2022-12-04] MEDS: SODIUM CHLORIDE 0.9% 1,000 ML IV SCH ×3 (01:47→21:08)
[2022-12-04] MEDS ORDERED: METHOCARBAMOL 500 MG TABLET PO PRN (02:55)
[2022-12-04] MEDS ORDERED: oxyCODONE/ACETAMINOPHEN 5-325 MG TABLET PO PRN (03:00)
[2022-12-04 08:29] LABS: Basophils % 0.1 % (0.0-0.8); Eosinophils % 0.3 % (0.00-10.9); Hemoglobin 12.3 GM/DL (12.0-16.0); Immature Granulocytes % 0.4 %; Immature Granulocytes Absolute 0.03 #; Lymphocytes % 15.1 % (21.3-54.2); Mean Corpuscular HGB Conc 35.1 GM/DL (32-36); Mean Corpuscular Volume 91.6 FL (87-102); Mean Platelet Volume 8.1 FL (9.6-12.0); Monocytes # 0.5 10*3/uL (0.11-0.8); Neutrophils % 77.1 % (38.7-73.9); Platelet Count 355 T/CUMM (130-400); Red Blood Count 3.82 MC/CUMM (3.8-5.5); Red Cell Distribution Width 15.4 % (9.3-17.3)
[2022-12-04 08:49] LABS: Albumin 3.1 G/DL (3.4-5.0); Bilirubin,Total 0.9 MG/DL (0.20-1.00); Calcium 8.1 MG/DL (8.5-10.1); Osmolality,Calculated 240.9 MOS/KG (273-304); Potassium 3.7 MMOL/L (3.5-5.1); Total Protein 6.7 G/DL (6.4-8.2)
[2022-12-04] MEDS: LACTULOSE 20 GM/30 ML UDCUP PO SCH ×4 (10:05→21:08)
[2022-12-04] MEDS: DOXYCYCLINE HYCLATE 100 MG CAPSULE PO SCH ×2 (10:05→21:05)
[2022-12-04] MEDS: PANTOPRAZOLE 40 MG TABLET PO SCH (10:05)
[2022-12-04] MEDS: atenoloL 50 MG TABLET PO SCH (10:05)
[2022-12-04] MEDS: RIFAMPIN 300 MG CAPSULE PO SCH ×2 (10:06→21:06)
[2022-12-04] MEDS: GABAPENTIN 300 MG CAPSULE PO SCH ×3 (10:06→21:05)
[2022-12-04 14:59] LABS: Calcium 8.6 MG/DL (8.5-10.1); Osmolality,Calculated 238.2 MOS/KG (273-304); Potassium 3.8 MMOL/L (3.5-5.1)
[2022-12-04] MEDS: oxyCODONE/ACETAMINOPHEN 5-325 MG TABLET PO PRN (18:10)
[2022-12-05] MEDS: oxyCODONE/ACETAMINOPHEN 5-325 MG TABLET PO PRN ×4 (00:26→18:17)
[2022-12-05] MEDS: SODIUM CHLORIDE 0.9% 1,000 ML IV SCH ×2 (06:09→17:00)
[2022-12-05 06:25] LABS: Calcium 8.8 MG/DL (8.5-10.1); Osmolality,Calculated 253.1 MOS/KG (273-304); Potassium 3.4 MMOL/L (3.5-5.1)
[2022-12-05] MEDS: POTASSIUM CHLORIDE 20 MEQ TABLET PO PRN ×3 (06:34→09:29)
[2022-12-05] MEDS: atenoloL 50 MG TABLET PO SCH (08:44)
[2022-12-05] MEDS: PANTOPRAZOLE 40 MG TABLET PO SCH (08:44)
[2022-12-05] MEDS: DOXYCYCLINE HYCLATE 100 MG CAPSULE PO SCH ×2 (08:44→20:31)
[2022-12-05] MEDS: RIFAMPIN 300 MG CAPSULE PO SCH ×2 (08:44→20:31)
[2022-12-05] MEDS: GABAPENTIN 300 MG CAPSULE PO SCH ×3 (08:44→20:32)
[2022-12-05] MEDS: LACTULOSE 20 GM/30 ML UDCUP PO SCH ×2 (10:14→20:33)
[2022-12-05] MEDS ORDERED: POTASSIUM BICARB EFFERVESCENT 20 MEQ TAB.EFF PO ONE (15:43)
[2022-12-06] MEDS: oxyCODONE/ACETAMINOPHEN 5-325 MG TABLET PO PRN ×3 (00:07→12:27)
[2022-12-06] MEDS: SODIUM CHLORIDE 0.9% 1,000 ML IV SCH (01:53)
[2022-12-06 05:36] LABS: Eosinophils % 0.9 % (0.00-10.9); Hematocrit 34.7 VOL% (35.7-47.0); Hemoglobin 12.1 GM/DL (12.0-16.0); Immature Granulocytes % 0.5 %; Immature Granulocytes Absolute 0.02 #; Lymphocytes # 1.4 10*3/uL (1.4-4.0); Lymphocytes % 31.4 % (21.3-54.2); Mean Corpuscular HGB Conc 34.9 GM/DL (32-36); Mean Corpuscular Volume 92.5 FL (87-102); Mean Platelet Volume 8.6 FL (9.6-12.0); Monocytes # 0.6 10*3/uL (0.11-0.8); Monocytes % 14.3 % (1.7-12.7); Neutrophils % 52.9 % (38.7-73.9); Platelet Count 331 T/CUMM (130-400); Red Blood Count 3.75 MC/CUMM (3.8-5.5); Red Cell Distribution Width 15.6 % (9.3-17.3); White Blood Count 4.42 T/CUMM (4-12)
[2022-12-06 05:53] LABS: Bilirubin,Total 1.1 MG/DL (0.20-1.00); Calcium 8.5 MG/DL (8.5-10.1); Osmolality,Calculated 266.4 MOS/KG (273-304); Potassium 3.8 MMOL/L (3.5-5.1); Total Protein 7.1 G/DL (6.4-8.2)
[2022-12-06 07:14] VITALS: BP 103/66
[2022-12-06] MEDS: PANTOPRAZOLE 40 MG TABLET PO SCH (08:58)
[2022-12-06] MEDS: GABAPENTIN 300 MG CAPSULE PO SCH (08:58)
[2022-12-06] MEDS: RIFAMPIN 300 MG CAPSULE PO SCH (08:59)
[2022-12-06] MEDS: DOXYCYCLINE HYCLATE 100 MG CAPSULE PO SCH (08:59)
[2022-12-06] MEDS: atenoloL 50 MG TABLET PO SCH (09:01)
[2022-12-06] MEDS: LACTULOSE 20 GM/30 ML UDCUP PO SCH (09:42)
== END 2022-12-06 12:57 | disposition home or self-care (01) | DRG 640 ==
LOC: N.ED 18:27 → N.EDINP 12-04 00:02 → N.3E 12-04 12:00
PROVIDERS: ADMIT Internal Medicine; ATTEND Internal Medicine